=== PATIENT | female | born 1960 | race Caucasian/White ===

== ENCOUNTER → 2019-10-08 15:31 | Outpatient (CLI) | payer BC, SELFPAY ==
--- NOTE | 2019-10-08 15:32 | RAD_ITS ---
STUDY: X-RAY CHEST REASON FOR EXAM: Female, 59 years old. COUGH, FEVER, FATIGUE X ONE WEEK TECHNIQUE: PA and lateral views of the chest. COMPARISON: None. FINDINGS: Increased interstitial markings more prominent at the lung bases. This may represent either scarring or bilateral interstitial infiltrate. Follow-up is recommended. There is no demonstrated pleural abnormality. Normal size heart. Normal mediastinum and evens. Normal visualized pulmonary arteries. Normal visualized aortic arch and descending thoracic aorta. There are diffuse degenerative changes of the visualized thoracic spine. Normal visualized ribs, clavicles, and shoulders. There is no demonstrated abnormality of the visualized soft tissue structures of the upper abdomen. RAD/Chest PA and Lateral IMPRESSION: Increased interstitial markings in both lungs worse at the lung bases. This may represent either scarring or interstitial infiltrate. Follow-up is recommended. Electronically Signed: Jerardo Appiah, at 15:46 EDT , Service support ,
== END ==
PROVIDERS: Referring Provider Physician Assistant; Visit Provider Physician Assistant
DX: R05 Cough (principal)
CPT/HCPCS: 71046

== ENCOUNTER 2022-02-01 07:51 | Day surgery (SDC) | payer OTHER, SELFPAY ==
[2022-02-01 08:34] VITALS: BP 128/69; PULSE 69; RESP 16; TEMP 36.6; O2SAT 96; BMI 30.1
[2022-02-01] MEDS: Lactated Ringers 1,000 ML 15 ML IV (08:39)
[2022-02-01] MEDS: Lidocaine 1% (5 ml sdv) 5 ML Vial (08:58)
[2022-02-01] MEDS: 0.9% Normal Saline (Pres. free 10 ML Vial (08:59)
[2022-02-01] MEDS: Bupivacaine 0.25% 30 ML Vial (08:59)
[2022-02-01] MEDS: MethylPREDNISolone Acetate 80 MG/ML Vial (08:59)
[2022-02-01 09:10] VITALS: BP 128/69; BP 99/58; PULSE 75; RESP 16; TEMP 36.2; O2SAT 98
[2022-02-01 09:15] VITALS: BP 128/69; BP 96/62; PULSE 71; RESP 16; O2SAT 97
[2022-02-01 09:20] VITALS: BP 112/70; BP 128/69; PULSE 69; RESP 16; O2SAT 98
[2022-02-01 09:25] VITALS: BP 100/62; BP 128/69; PULSE 65; RESP 16; TEMP 36.2; O2SAT 98
--- NOTE | 2022-02-01 09:30 | RAD_ITS ---
PROCEDURE: Caudal block. DATE OF EXAMINATION: 02/01/2022. INDICATION: Female, 61 years old. Chronic low back pain. FLUOROSCOPY TIME (if supplied): (6.9 seconds) minutes/seconds. 3 images were obtained. RAD/Fluor Guidance for Spine Inj IMPRESSION: Intraoperative fluoroscopic services provided for caudal block. Electronically Signed: Jerardo Appiah MD at 12:17 EDT ,
[2022-02-01 09:47] VITALS: BP 128/69
--- NOTE | 2022-02-01 10:45 | OP.PCM_ITS ---
Report of Operation Date of Procedure: 02/01/22 Pre-Operative Diagnosis: Lumbosacral radiculopathy, lumbosacral degenerative di sc disease, lumbosacral spinal stenosis Post-Operative Diagnosis: Lumbosacral radiculopathy, lumbosacral degenerative disc disease, lumbosacral spinal stenosis Surgery/Procedure Performed:: Caudal epidural steroid injection under fluoroscopic guidance Type of Anesthesia: MAC Estimated Blood Loss (mL): Minimal Description of Procedure: DESCRIPTION OF PROCEDURE: History and physical of today was reviewed. Risks and benefits of the procedure were explained. The patient understood and agreed to proceed. Informed consent was obtained. IV inserted per routine protocol. The patient was taken to the operating room and placed in the prone position with a pillow positioned underneath the abdomen. The lower back and tailbone area was prepped and draped in a sterile fashion using iodine x3. Under fluoroscopy guidance on a lateral view, the caudal space was identified. The skin and subcutaneous tissue was anesthetized with approximately 3 mL of 1% lidocaine using a 25-gauge regular needle. Under direct visualization with fluoroscopy, using a 22-gauge 3-1/2-inch spinal needle, the needle was advanced via the skin through the sacral hiatus. The tip of the needle was passed through the sacrococcygeal ligament and advanced to approximately S4 area. After negative aspiration of blood or CSF, a total of 3 mL of contrast was injected to confirm correct placement of the needle as well as cephalad spread. The spread was followed to approximately L5 area. After confirmation on AP as well as lateral view and repeated negative aspiration, a total of 15 mL of preservative-free 0.125% Marcaine with 80 mg of Depo-Medrol was injected easily. The needle was then removed intact. The patient experienced no sign or symptoms of intrathecal or intravascular injection. The patient experienced no paresthesia. The procedure was completed without any apparent difficulty or any complications. The patient appeared to tolerate it well. ASSESSMENT AND PLAN: This is a 61-year-old female with lumbosacral radiculopathy, lumbosacral degenerative disc disease, lumbosacral spinal stenosis status post caudal epidural steroid injection, patient will continue her current medications, patient will follow in approximately 2 weeks for reevaluation. Complications None
--- NOTE | 2022-02-04 16:09 | HP.PCM_ITS ---
History and Physical Date of Admission: 02/01/22 Chief Complaint: Low back pain with radicular pain down her left leg, and into her right hip. History of Present Illness: This is a 61 Y/O female who was seen and evaluated at our office today as a new consult. Pt was referred to this office by Dr Coronado. Pt's chief complaint is low back pain with radicular pain down her left leg, and into her right hip. Pt states she has had this pain for 3 years does not remember an initial interview. Pt states the pain is an aching, cramping pain worse with walking better with sitting. Pt has had injections with relief. Pt states with activity she may have pain and tingling going down her left leg. Pt states at times she can get incontinence. Pt is here to see what can be done to help with her pain. Pain: back , leg, hip Quality: intermittent Region: back, bilateral hips (left is worse) , left leg Severity: aching, cramping, pins and needles/ numbness Timin Aggravated by: weight bearing Relieved by: sitting, lying down Pain score (out of 10): 0 /10 Other info: Reports pain in lower back, bilateral hips (left is worse) and left leg. states pain s intermittent . states pain in left leg goes farther down her leg the more active she is. Has had x-rays, mri, done physical therapy, and gone to a chiropractor. patient has had a injection in the past. would like to discuss injections. Review of Systems: Patient denies any recent fever, chills, headache, change in weight without trying, vision or hearing problems. No cp, sob, daley, pnd, orthopnea, or peripheral edema.They note no lumps or swollen glands, no new rashes, changing moles, or change in bowel or bladder function. No melena or BRBPR. Mood has been fine. Past Medical History: h/o Arthritis s/p Laparoscopic Cholecystectomy s/p Lithotripsy Family History: ======== Structured Family History ======== Father: Diabetes mellitus, Arthritis Social History: [Tobacco: Light tobacco smoker (0 ppd x 0 yrs = 0 pk yrs) Start Date: 12/31/2021 Pipe Smoker: No Cigar Smoker: No Chewing Tobacco User: No Electronic Cigarette User: No] Living situation: Occupation: retired Tobacco: light tobacco smoker EtOH: rarely Rec. drugs: denies Allergies: No Known Allergies Medications: No Active Meds Physical Examination: Wt: 182.6 lb Ht/Ln: 66.5 in BMI: 29.0 BP: 127/82 Pulse: 75 RR: 16 Temp: 96.8F Pain: 7 Well nourished and well developed in no acute distress. Alert and oriented to person, place and time. Affect is normal and appropriate. Mucosa pink and moist. Respirations even and unlabored. Neck is supple without significant lymphadenopathy or thyromegaly. Abdomen soft & non-tender. No HSM or masses appreciated. Extremities show no cyanosis, clubbing, or edema. Musculoskeletal exam: pt is ambulating to and from the examination room with an antalgic gait without any assistance of any devices, pt was able to ambulate on her heels and tip toes without difficulty, ROM of the lumbar spine is limited to 45 degrees flexion and 10 degrees extension, lateral rotation with pain. On inspection of the lower back there is no surgical scar, alignment of the spine appears normal. On superficial and deep palpation there is tenderness at the bilaterally paraspinal muscle without muscle spasms, there is no step off on the spinous process. There is tenderness and positive facet loading bilaterally, negative SI joint tenderness , SLR test is positive at 35 degrees on the right and positive 35 degrees on the left, YONIS test is positive on the right and positive on the left, motor function is 5/5 on the right lower extremity muscles and 5/5 on the left lower extremity muscles, sensory exam intact to light touch on the right and the left, reflexes are symmetrical bilateral and 2+ on the right knee jerk and Achilles and 2+ on the left knee jerk and Achilles, pulses and capillary refill are intact. Goals: Health Concerns: Assessment & Plan: # Lumbosacral spondylosis (M47.817): # Degeneration of lumbosacral intervertebral disc (M51.37): # Lumbosacral stenosis (M48.07): # Lumbosacral radiculopathy (M54.17): # Other intermediate designer (current) drug therapy (Z79.899): Continue current medication regime. OARRS was reviewed today. UDS was performed today and will be reviewed on the next encounter to monitor pt medications compliance. SOAPP score is 6 MRI of the lumbar spine was reviewed with the pt today and they appear to understand. There are no signs of diversion or addiction with the pt, there is also no signs of abuse or misuse, continues to do well with their medications without any side effects, we will continue monitoring the pt closely. Pt has tried multiple modalities in the past with little or no success, will schedule the pt for a therapeutic/diagnostic caudal epidural steroid injection under fluoroscopy We have discussed the risks, benefits as well as alternatives of the procedure and the patient appears to understand and would like to proceed with the above plan. Reviewed with the pt today our opioid agreement and they appear to understand. PEG was reviewed today. Life style modifications were also discussed today and the pt appears to understand. Smoking cessation was discussed today and pt was encouraged. Risks and benefits of the above meds were discussed with the pt and they appear to understand. The common side effects of the medications were discussed and all of their questions and concerns were answered and they appear to understand Discussed natural and expected course of this diagnosis and need to alert me if symptoms do not follow expected course, or if any worse. Pt is to continue with her PT and HEP. The above plan was discussed today with the pt in details and they appear to understand and agrees to continue with the plan. PROVIDED: Patient Education (01/07/2022) Assessment & Plan Assessment/Plan PLAN: Plan Chief Complaint: Low back pain with radicular pain down her left leg, and into her right hip. History of Present Illness: This is a 61 Y/O female who was seen and evaluated at our office today as a new consult. Pt was referred to this office by Dr Coronado. Pt's chief complaint is low back pain with radicular pain down her left leg, and into her right hip. Pt states she has had this pain for 3 years does not remember an initial interview. Pt states the pain is an aching, cramping pain worse with walking better with sitting. Pt has had injections with relief. Pt states with activity she may have pain and tingling going down her left leg. Pt states at times she can get incontinence. Pt is here to see what can be done to help with her pain. Pain: back , leg, hip Quality: intermittent Region: back, bilateral hips (left is worse) , left leg Severity: aching, cramping, pins and needles/ numbness Timin Aggravated by: weight bearing Relieved by: sitting, lying down Pain score (out of 10): 0 /10 Other info: Reports pain in lower back, bilateral hips (left is worse) and left leg. states pain s intermittent . states pain in left leg goes farther down her leg the more active she is. Has had x-rays, mri, done physical therapy, and gone to a chiropractor. patient has had a injection in the past. would like to discuss injections. Review of Systems: Patient denies any recent fever, chills, headache, change in weight without trying, vision or hearing problems. No cp, sob, daley, pnd, orthopnea, or peripheral edema.They note no lumps or swollen glands, no new rashes, changing moles, or change in bowel or bladder function. No melena or BRBPR. Mood has been fine. Past Medical History: h/o Arthritis s/p Laparoscopic Cholecystectomy s/p Lithotripsy Family History: ======== Structured Family History ======== Father: Diabetes mellitus, Arthritis Social History: [Tobacco: Light tobacco smoker (0 ppd x 0 yrs = 0 pk yrs) Start Date: 12/31/2021 Pipe Smoker: No Cigar Smoker: No Chewing Tobacco User: No Electronic Cigarette User: No] Living situation: Occupation: retired Tobacco: light tobacco smoker EtOH: rarely Rec. drugs: denies Allergies: No Known Allergies Medications: No Active Meds Physical Examination: Wt: 182.6 lb Ht/Ln: 66.5 in BMI: 29.0 BP: 127/82 Pulse: 75 RR: 16 Temp: 96.8F Pain: 7 Well nourished and well developed in no acute distress. Alert and oriented to person, place and time. Affect is normal and appropriate. Mucosa pink and moist. Respirations even and unlabored. Neck is supple without significant lymphadenopathy or thyromegaly. Abdomen soft & non-tender. No HSM or masses appreciated. Extremities show no cyanosis, clubbing, or edema. Musculoskeletal exam: pt is ambulating to and from the examination room with an antalgic gait without any assistance of any devices, pt was able to ambulate on her heels and tip toes without difficulty, ROM of the lumbar spine is limited to 45 degrees flexion and 10 degrees extension, lateral rotation with pain. On inspection of the lower back there is no surgical scar, alignment of the spine appears normal. On superficial and deep palpation there is tenderness at the bilaterally paraspinal muscle without muscle spasms, there is no step off on the spinous process. There is tenderness and positive facet loading bilaterally, negative SI joint tenderness , SLR test is positive at 35 degrees on the right and positive 35 degrees on the left, YONIS test is positive on the right and positive on the left, motor function is 5/5 on the right lower extremity muscles and 5/5 on the left lower extremity muscles, sensory exam intact to light touch on the right and the left, reflexes are symmetrical bilateral and 2+ on the right knee jerk and Achilles and 2+ on the left knee jerk and Achilles, pulses and capillary refill are intact. Goals: Health Concerns: Assessment & Plan: # Lumbosacral spondylosis (M47.817): # Degeneration of lumbosacral intervertebral disc (M51.37): # Lumbosacral stenosis (M48.07): # Lumbosacral radiculopathy (M54.17): # Other intermediate designer (current) drug therapy (Z79.899): Continue current medication regime. OARRS was reviewed today. UDS was performed today and will be reviewed on the next encounter to monitor pt medications compliance. SOAPP score is 6 MRI of the lumbar spine was reviewed with the pt today and they appear to understand. There are no signs of diversion or addiction with the pt, there is also no signs of abuse or misuse, continues to do well with their medications without any side effects, we will continue monitoring the pt closely. Pt has tried multiple modalities in the past with little or no success, will schedule the pt for a therapeutic/diagnostic caudal epidural steroid injection under fluoroscopy We have discussed the risks, benefits as well as alternatives of the procedure and the patient appears to understand and would like to proceed with the above p cornelio. Reviewed with the pt today our opioid agreement and they appear to understand. PEG was reviewed today. Life style modifications were also discussed today and the pt appears to understand. Smoking cessation was discussed today and pt was encouraged. Risks and benefits of the above meds were discussed with the pt and they appear to understand. The common side effects of the medications were discussed and all of their questions and concerns were answered and they appear to understand Discussed natural and expected course of this diagnosis and need to alert me if symptoms do not follow expected course, or if any worse. Pt is to continue with her PT and HEP. The above plan was discussed today with the pt in details and they appear to understand and agrees to continue with the plan. PROVIDED: Patient Education (01/07/2022)
== END 2022-02-01 09:48 | disposition home or self-care (01) ==
LOC: SDC 07:55 → AC 08:02
PROVIDERS: PCP Family Medicine; Referring Provider Anesthesiology Pain Medicine; Visit Provider Anesthesiology Pain Medicine
PROC: 3E0S3BZ Introduction of Anesthetic Agent into Epidural Space, Percutaneous Approach (ICD-10-PCS; CPT 62282; principal; 2022-02-01 09:25)
DX: M47.27 Other spondylosis with radiculopathy, lumbosacral region (principal); M48.07 Spinal stenosis, lumbosacral region; F17.210 Nicotine dependence, cigarettes, uncomplicated; M51.17 Intervertebral disc disorders with radiculopathy, lumbosacral region; G25.81 Restless legs syndrome; Z78.0 Asymptomatic menopausal state
CPT/HCPCS: 62323; 01992; 64483; 77003; J7120; J3490

== ENCOUNTER → 2023-06-14 | Outpatient (CLI) | payer MEDICARE, SELFPAY ==
--- NOTE | 2023-06-14 08:00 | CT_ITS ---
EXAM: CT ABDOMEN AND PELVIS WITHOUT INTRAVENOUS CONTRAST CLINICAL INDICATION: R FLANK PAIN/HX STONES TECHNIQUE: Helically acquired images were obtained of the abdomen and pelvis without intravenous contrast. This CT exam was performed using one or more of the following dose reduction techniques: automated exposure control, adjustment of the mA and/or kV according to patient size, and/or use of iterative reconstruction technique. COMPARISON: No relevant prior studies available. FINDINGS: LOWER THORAX: 3.6 mm left lower lobe pulmonary nodule as well as a 3 mm right lower lobe pulmonary nodule. ABDOMEN: LIVER: 13 mm cyst noted within hepatic segment 7. No specific follow-up indicated. GALLBLADDER AND BILE DUCTS: Cholecystectomy clips are in place. PANCREAS: Normal. No focal cystic mass. SPLEEN: Normal. Normal size without focal cystic or solid mass. ADRENALS: Normal. No nodules. KIDNEYS AND URETERS: 12 x 8 mm stone noted at the left UP junction associated with marked left hydronephrosis. 10 x 7 mm nonobstructive stone noted within the lower pole infundibulum of the right kidney. STOMACH AND BOWEL: Diverticulosis of the colon noted without evidence of acute diverticulitis. PELVIS: APPENDIX: Appendix is visualized and normal in appearance. BLADDER: Normal. REPRODUCTIVE: Unremarkable as visualized. No mass. ABDOMEN and PELVIS: INTRAPERITONEAL SPACE: Normal. No ascites or other fluid collection. No free air. BONES/JOINTS: No suspicious lytic or blastic abnormality. SOFT TISSUES: Small fat-containing umbilical hernia is present. Bilateral fat-containing inguinal hernias. VASCULATURE: Normal. Abdominal aorta is non-dilated. LYMPH NODES: Normal. No enlarged lymph nodes. CT/Abdomen/Pelvis without Cont IMPRESSION: 1. Obstructive 12 x 8 mm stone at the left UP junction. 2. Right nephrolithiasis. 3. Diverticulosis coli. Electronically Signed: Sarwat Marvin MD at 8:53 EST ,
== END | disposition home or self-care (01) ==
PROVIDERS: PCP Family Medicine; Referring Provider Urology; Visit Provider Urology
DX: R10.9 Unspecified abdominal pain (principal); Z87.442 Personal history of urinary calculi
CPT/HCPCS: 74176

== ENCOUNTER 2023-06-16 08:45 | Day surgery (SDC) | payer MEDICARE, SELFPAY ==
[2023-06-16] MEDS: Lactated Ringers 1,000 ML 15 ML IV (09:28)
[2023-06-16 09:29] VITALS: BP 125/66; PULSE 74; RESP 18; TEMP 36.3; O2SAT 100; BMI 29.9
[2023-06-16 09:33] LABS: Hematocrit 41.5 % (37-47); Hemoglobin 13.3 g/dL (12.0-15.0); Mean Corpuscular Hgb 29.6 pg (27.0-32.0); Mean Corpuscular Volume 92.4 fL (81-99); Mean Platelet Vol. 9.6 fl (6.2-12.0); Platelet Count 270 K/mm3 (150-450); RBC Distribution Width CV 12.5 % (11.6-14.6); RBC Distribution Width SD 42.8 fl (35.1-43.9); Red Blood Count 4.49 M/mm3 (4.2-5.4); White Blood Count 6.5 K/mm3 (4.4-11.0)
[2023-06-16] MEDS: Ciprofloxacin 400 MG/200 ML BAG 200 MG IV (09:39)
[2023-06-16 09:42] VITALS: BMI 29.9
[2023-06-16 09:45] LABS: Anion Gap 2 (5-15); BUN 18 mg/dL (7-18); BUN/Creat Ratio 17.3 RATIO (10-20); Calcium,Total 8.8 mg/dL (8.5-10.1); Chloride 111 mmol/L (98-107); Creatinine, Serum 1.04 mg/dL (0.55-1.02); EST Glomerular Filtration Rate 57 mL/min (>60); Est Glom Filt Rate - Afr Amer 68 mL/min (>60); Estimated Creatinine Clearance 48.53 ml/min; Glucose 115 mg/dL (74-106); Sodium Level 141 mmol/L (136-145)
[2023-06-16 10:35] VITALS: BP 110/60; BP 110/67; BP 125/66; PULSE 71; PULSE 76; RESP 12; RESP 18; TEMP 36.6; O2SAT 95; O2SAT 97
[2023-06-16 10:40] VITALS: BP 125/66; BP 128/72; PULSE 75; RESP 14; O2SAT 96
[2023-06-16 10:46] VITALS: BP 125/66; BP 128/72; PULSE 71; RESP 18; TEMP 36.8; O2SAT 96
--- NOTE | 2023-06-16 10:54 | DCINST_ITS ---
Discharge Instructions Diet Discharge Diet: No restrictions Activity Discharge Activity: Return to Normal Activity Dressing / Incision Call your doctor if you observe: Fever of 101 or Higher and Inability to urinate Follow Up Care Please Follow Up With: Nettie Belle MD When: the office will call to make arrangements for follow up Test Results: Test results from this visit will be discussed in further detail at your follow- up appointment, if applicable. Discharge Plan Admission Attending Provider: Nettie Belle Primary Care Provider: Koby Young Discharge Orders/Prescriptions Prescriptions: New oxycodone-acetaminophen [Percocet] 5-325 mg tablet 1 tab PO Q8H PRN (Reason: pain) 3 Days Qty: 10 0RF phenazopyridine [Pyridium] 200 mg tablet 200 mg PO TID PRN PRN (Reason: Bladder Spasms) 7 Days Qty: 30 0RF Continued ciprofloxacin HCl 500 mg tablet 500 mg PO Q12H Referrals / Follow Up: Koby Young MD [Primary Care Provider] - Disposition Disposition (needs filled in before D/C Order can be placed): Home, Self Care
--- NOTE | 2023-06-16 10:57 | OP.PCM_ITS ---
Report of Operation Date of Procedure: 06/16/23 Pre-Operative Diagnosis: Bilateral renal stones, left hydronephrosis, bilateral flank pain Post-Operative Diagnosis: Same Surgery/Procedure Performed:: Cystoscopy, insertion of bilateral ureteral stents Surgeon: Nettie Belle Type of Anesthesia: MAC Description of Procedure: The patient is a 63-year-old female with bilateral back pain and urinary tract infections who was evaluated and found to have bilateral large renal stones with hydronephrosis on the left. She now presents for cystoscopy with bilateral stent insertion and will return later for treatment of her stones. Informed consent was obtained. The patient was taken to the operating room placed on the operating room table. Anesthesia monitored the head, neck, airway, IV access and vital signs throughout the case. Once anesthesia was administered, the patient was placed in dorsolithotomy position was prepped and draped in usual sterile fashion. At this time the cystoscope was inserted through the urethra under direct visualization into the urinary bladder. Visualization of the mucosa revealed no evidence of mass, erythema, ulceration or foreign body. The right ureteral orifice was intubated with a 0.035 Glidewire which was seen curling in the renal pelvis on fluoroscopy. A 6 Micronesian 26 cm JJ stent was placed over the Glidewire with good positioning in the renal pelvis and the urinary bladder. This process was repeated on the patient's left side with some difficulty at the ureteropelvic junction where the stone was sitting. The stent did pass by and curled in the renal pelvis as well as the urinary bladder. At this time the bladder was emptied and the cystoscope was removed. The patient was awakened and taken to the recovery room in good condition. Grafts/Implants Used: 6 Micronesian x26 cm JJ stent x2 Complications None Admit VTE Documentation VTE Present on Admission: Yes VTE Mechan Device Prophylaxis: SCD's VTE Pharm Prophylaxis ordered?: No Reason prophylaxis not ordered:: Treatment Not Indicated
[2023-06-16 11:09] VITALS: BP 125/66
== END 2023-06-16 11:18 | disposition home or self-care (01) ==
LOC: SDC 08:46 → AC 08:48
PROVIDERS: PCP Family Medicine; Referring Provider Urology; Visit Provider Urology
PROC: (CPT 52332; principal; 2023-06-16 10:00)
DX: N13.6 Pyonephrosis (principal); F17.200 Nicotine dependence, unspecified, uncomplicated; Z90.49 Acquired absence of other specified parts of digestive tract; Z87.442 Personal history of urinary calculi; N39.0 Urinary tract infection, site not specified; R10.9 Unspecified abdominal pain
CPT/HCPCS: 52332; 00910; 76000; 80048; 85027; J7120; C2617; J0744; J2405

== ENCOUNTER 2023-07-07 05:49 | Day surgery (SDC) | payer MEDICARE, SELFPAY ==
[2023-07-07 06:21] VITALS: BP 123/78; PULSE 87; RESP 16; TEMP 36.4; O2SAT 100; BMI 29.3
[2023-07-07] MEDS: Lactated Ringers 1,000 ML 15 ML IV (06:24)
[2023-07-07] MEDS: Cefazolin 2 GM in 0.9% Normal Saline (100mL Bag) 100 ML IV (07:48)
--- NOTE | 2023-07-07 08:04 | DCINST_ITS ---
Discharge Instructions Diet Discharge Diet: No restrictions Activity Discharge Activity: Return to Normal Activity Dressing / Incision Call your doctor if you observe: Fever of 101 or Higher, Inability to urinate and Inability to have a bowel movement Follow Up Care Please Follow Up With: Nettie Belle MD When: the office will make arrangements for the next procedure. Test Results: Test results from this visit will be discussed in further detail at your follow- up appointment, if applicable. Discharge Plan Admission Attending Provider: Nettie Belle Primary Care Provider: Koby Young Discharge Orders/Prescriptions Prescriptions: New oxycodone-acetaminophen [Percocet] 5-325 mg tablet 1 tab PO Q8H PRN (Reason: pain) 3 Days Qty: 12 0RF Continued cephalexin 250 mg capsule 250 mg PO QHS Patient Comments: TAKE 1 CAPSULE BY MOUTH DAILY AT BEDTIME Referrals / Follow Up: Koby Young MD [Primary Care Provider] - Disposition Disposition (needs filled in before D/C Order can be placed): Home, Self Care
--- NOTE | 2023-07-07 08:13 | PCM.OPRPT ---
Report of Operation Date of Procedure: 07/07/23 Pre-Operative Diagnosis: Left renal stone Post-Operative Diagnosis: Same Surgery/Procedure Performed:: Left renal extracorporal shockwave lithotripsy Surgeon: Nettie Belle Type of Anesthesia: General Specimen's removed: none Description of Procedure: The patient is a 63-year-old female with bilateral renal stones who presents for shockwave lithotripsy for the left side today. Informed consent has been obtained. She already has an indwelling left ureteral stent. The patient was taken to the operating room and placed on the operating room table. Anesthesia monitored the head, neck, airway, IV access and vital signs throughout the case. Once anesthesia was appropriate ministered, the patient was aligned with the lithotripter. Her stones were easily visible and 3000 shocks were applied. The stones appeared to be well broken at the conclusion of the case. She was awakened and taken the recovery room in good condition. There were no complications during this procedure. Complications none Admit VTE Documentation VTE Present on Admission: Yes VTE Mechan Device Prophylaxis: SCD's VTE Pharm Prophylaxis ordered?: No Reason prophylaxis not ordered:: Treatment Not Indicated
[2023-07-07 08:42] VITALS: BP 123/78; BP 127/67; PULSE 71; RESP 16; TEMP 36.5; O2SAT 95
[2023-07-07 08:45] VITALS: BP 113/71; BP 123/78; PULSE 71; RESP 16; O2SAT 96
[2023-07-07 08:50] VITALS: BP 115/65; BP 123/78; PULSE 68; RESP 16; O2SAT 96
[2023-07-07 08:55] VITALS: BP 120/64; BP 123/78; PULSE 70; RESP 16; TEMP 36.6; O2SAT 72
[2023-07-07 09:14] VITALS: BP 123/78
== END 2023-07-07 09:19 | disposition home or self-care (01) ==
LOC: SDC 05:49 → AC 05:50
PROVIDERS: PCP Family Medicine; Referring Provider Urology; Visit Provider Urology
PROC: (CPT 50590; principal; 2023-07-07 07:20)
DX: N20.2 Calculus of kidney with calculus of ureter (principal); Z90.49 Acquired absence of other specified parts of digestive tract; Z87.442 Personal history of urinary calculi; N39.0 Urinary tract infection, site not specified; F17.200 Nicotine dependence, unspecified, uncomplicated; R10.9 Unspecified abdominal pain
CPT/HCPCS: 50590; 00873; J7120; J2405

== ENCOUNTER → 2023-07-26 | Outpatient (CLI) | payer MEDICARE, SELFPAY ==
--- NOTE | 2023-07-26 12:35 | RAD_ITS ---
INDICATION: KUB- LEFT RENAL STONE EXAMINATION/TECHNIQUE: X-RAY - XR Abdomen 1 View COMPARISON: No relevant prior comparison study available FINDINGS: BOWEL GAS PATTERN: Non-obstructive. Fecal retention. Mildly distended stomach. FREE AIR: Not assessed on a single supine view. ORGANOMEGALY: Not seen. CALCIFICATIONS: No abnormal calcifications observed. LOWER CHEST: Not included on this exam. BONES AND SOFT TISSUES: Bilateral double-J stent catheters with the proximal TIPS the region of the renal calyces and the distal tips in the region of the bladder. No demonstrated acute osseous changes. RAD/Abdomen Single View IMPRESSION: 1. Non-obstructive bowel gas pattern. 2. Bilateral double-J stent catheters. Electronically Signed: Faustino Oneal MD at 13:22 EST ,
--- OUTSIDE RECORDS SUMMARY | 2023-07-26 12:56 | XMS RPT_ITS | CCD ---
Author Name Unknown Address [address] [place] [address] Organization [facility] Care Team Providers Care Front Office Director Name Role Phone DR JONATHAN AVILES MD Primary Care Physician Jonathan Aviles MD Primary Care Provider Jonathan Aviles MD Primary Care Provider Jonathan Aviles MD Primary Care Provider JONATHAN AVILES Primary Care Unavailable JONATHAN AVILES Referring Unavailable JONATHAN AVILES Attending Unavailable JONATHAN AVILES Primary Care Unavailable JONATHAN AVILES Referring Unavailable JONATHAN AVILES Primary Care Unavailable Medications Current Medications Medication Drug Class(es) Dates Sig (Normalized) Sig (Original) amoxicillin 875 mg / clavulanate 125 mg oral tablet (1 source) Penicillin-class Antibacterial Start: 06-02-2022 End: 06-12-2022 take 1 tablet by mouth twice daily amoxicillin-clav ulanic acid (AUGMENTIN) 875-125 mg per tablet Take 1 tablet by mouth twice daily for 10 days. 20 tablet 0 06/02/2022 06/12/2022 Active Problems Active Problems Problem Classification Problem Date Documented Da te Episodic/Chronic Coagulation and hemorrhagic disorders (7 sources) Factor XII deficiency disease; Translations: [Hereditary deficiency of other clotting factors] Onset: 07-02-2013 07-02-2013 Chronic Disorders of lipid metabolism (1 source) Mixed hyperlipidemia; Translations: [Mixed hyperlipidemia] Chronic Other screening for suspected conditions (not mental disorders or infectious disease) (5 sources) Patient encounter status; Translations: [Encounter for screening for malignant neoplasm of colon] Onset: 06-03-2023 Episodic Other upper respiratory infections (1 source) Bacterial sinusitis; Translations: [Chronic sinusitis, unspecified] Chronic Spondylosis; intervertebral disc disorders; other back problems (1 source) Low back pain; Translations: [Low back pain, unspecified back pain laterality, unspecified chronicity, unspecified whether sciatica present] 05-23-2023 Episodic Past or Other Problems Problem Classification Problem Date Documented Da te Episodic/Chronic Calculus of urinary tract (14 sources) Kidney stone; Translations: [Calculus of kidney] Onset: 07-02-2013 07-02-2013 Episodic Genitourinary symptoms and ill-defined conditions (7 sources) Blood in urine; Translations: [Hematuria, unspecified] Onset: 05-03-2013 05-03-2013 Episodic Other non-traumatic joint disorders (7 sources) Hip pain; Translations: [Pain in left hip] Onset: 12-01-2020 12-01-2020 Episodic Screening and history of mental health and substance abuse codes (8 sources) Tobacco use and exposure - finding; Translations: [Personal history of nicotine dependence] Onset: 05-03-2013 05-03-2013 Episodic Urinary tract infections (7 sources) Lower urinary tract infectious disease; Translations: [Urinary tract infection, site not specified] Onset: 05-03-2013 05-03-2013 Episodic Results Test Name Value Interpretation Reference Range Facil ity Vital Signs Date Time Vital Sign Value Performing Clinician Facility 01-10-2023 11:57-0400 Body height 165.1 cm Jonathan Aviles MD Work Phone: [facility] 01-10-2023 11:57-0400 Body weight 82.64 kg Jonathan Aviles MD Work Phone: [facility] 01-10-2023 11:57-0400 Diastolic blood pressure 68 mm[Hg] Jonathan Aviles MD Work Phone: [facility] 01-10-2023 11:57-0400 Heart rate 78 /min Jonathan Aviles MD Work Phone: [facility] 01-10-2023 11:57-0400 Respiratory rate 16 /min Jonathan Aviles MD Work Phone: [facility] 01-10-2023 11:57-0400 Systolic blood pressure 120 mm[Hg] Jonathan Aviles MD Work Phone: [facility] 06-02-2022 17:50-0500 Body temperature 98.91 [degF] Jonathan Aviles MD Work Phone: [facility] 06-02-2022 17:50-0500 Body weight 82.56 kg Jonathan Aviles MD Work Phone: [facility] 06-02-2022 17:50-0500 Diastolic blood pressure 80 mm[Hg] Jonathan Aviles MD Work Phone: [facility] 06-02-2022 17:50-0500 Heart rate 88 /min Jonathan Aviles MD Work Phone: [facility] 06-02-2022 17:50-0500 Respiratory rate 16 /min Jonathan Aviles MD Work Phone: [facility] 06-02-2022 17:50-0500 Systolic blood pressure 140 mm[Hg] Jonathan Aviles MD Work Phone: [facility] 11-26-2021 08:04-0400 Body height 167.6 cm Jonathan Aviles MD Work Phone: [facility] 11-26-2021 08:04-0400 Body weight 84.32 kg Jonathan Aviles MD Work Phone: [facility] 11-26-2021 08:04-0400 Diastolic blood pressure 70 mm[Hg] Jonathan Aviles MD Work Phone: [facility] 11-26-2021 08:04-0400 Heart rate 74 /min Jonathan Aviles MD Work Phone: [facility] 11-26-2021 08:04-0400 Respiratory rate 16 /min Jonathan Aviles MD Work Phone: [facility] 11-26-2021 08:04-0400 Systolic blood pressure 124 mm[Hg] Jonathan Aviles MD Work Phone: [facility] 11-25-2021 07:58-0400 diastolic 76 mm[Hg] NEERU WOODARD DO [facility] 11-25-2021 07:58-0400 Heart rate 72 /min NEERU WOODARD DO [facility] 11-25-2021 07:58-0400 systolic 122 mm[Hg] NEERU WOODARD DO [facility] 11-25-2021 07:46-0400 diastolic 83 mm[Hg] ENERU WOODARD DO [facility] 11-25-2021 07:46-0400 Heart rate 77 /min NEERU WOODARD DO [facility] 11-25-2021 07:46-0400 systolic 123 mm[Hg] NEERU WOODARD DO [facility] 11-25-2021 07:39-0400 diastolic 76 mm[Hg] NEERU WOODARD DO [facility] 11-25-2021 07:39-0400 Heart rate 78 /min NEERU WOODARD DO [facility] 11-25-2021 07:39-0400 systolic 113 mm[Hg] NEERU WOODARD DO [facility] 11-25-2021 07:31-0400 Body temperature 97.7 [degF] NEERU WOODARD DO [facility] 11-25-2021 06:50-0400 Body height 165.1 cm NEERU WOODARD DO [facility] 11-25-2021 06:50-0400 Body temperature 98.24 [degF] NEERU WOODARD DO [facility] 11-25-2021 06:50-0400 Body weight 86.4 kg NEERU WOODARD DO [facility] 11-25-2021 06:50-0400 Heart rate 87 /min NEERU WOODARD DO [facility] 11-25-2021 06:50-0400 Respiratory rate 12 /min NEERU WOODARD DO [facility] Encounters Encounter Date Encounter Type Care Provider Facility Start: 06-06-2023 Documentation procedure Mammog karen Coordinator [facility] Start: 06-06-2023 Letter encounter Mammography Coordinator [facility] Department Start: 06-03-2023 End: 06-03-2023 ambulatory JONATHAN AVILES Facility:[facility] Start: 06-03-2023 End: 06-03-2023 Subsequent hospital visit by physician Screen Mammo [facility] Mammogram Procedures Date Procedure Procedure Detail Performing Clinician Start: 07-22-2022 Lipid 1996 panel - S marita or Plasma Jonathan Aviles MD Work Phone: Start: 11-26-2021 Adult depression scr eening assessment Jonathan Aviles MD Work Phone: Start: 04-24-2012 Mammography Jonathan ragland MD Work Phone: Cholecystectomy NEERU WATT S DO Electrohydraulic lithotripsy NEERU WOODARD DO Plan of Treatment Date Care Activity Detail Author Start: 07-22-2027 Lipid 1996 panel - S marita or Plasma Lipid Screening [facility] Start: 07-22-2027 LIPID SCREEN LIPID SCREEN [facility] Start: 11-18-2025 LIPID SCREEN LIPID SCREEN [facility] Start: 07-22-2025 DIABETES SCREEN DIABETES SCREEN [facility] Start: 07-22-2025 Diabetes Screening Diabetes Screenin g [facility] Start: 06-03-2024 Mammography Mammogram Screening [facility] Start: 11-19-2023 DIABETES SCREEN DIABETES SCREEN [facility] Start: 06-04-2023 COLORECTAL CANCER SCREENING COLORECTAL CANCER SCREENING [facility] Start: 06-04-2023 FECAL OCCULT BLOOD FECAL OCCULT BLOO D [facility] Start: 06-02-2023 COLORECTAL CANCER SCREENING COLORECTAL CANCER SCREENING [facility] Immunizations Immunization Date Immunization Notes Care Provider Fa cility 10-02-2022 zoster vaccine recombinant Jonathan Aviles MD Work Phone: [facility] 07-27-2022 zoster vaccine recombinant Jonathan Aviles MD Work Phone: [facility] 12-27-2020 COVID-19 vaccine, fu ll dose (MODERNA) Jonathan Aviles MD Work Phone: [facility] 11-29-2020 COVID-19 vaccine, fu ll dose (MODERNA) Jonathan Aviles MD Work Phone: [facility] 03-04-2010 tetanus toxoid, redu jonathan diphtheria toxoid, and acellular pertussis vaccine, adsorbed Jonathan Aviles MD Work Phone: [facility] Payers Date Payer Category Payer Unknown [id number] 2020 Unknown RACQUEL AYON O DEVIN [id number] 2020-Present [phone] [address] [place] [address] [facility] [id number] 2020 Unknown [id number] 2020 Unknown [id number] Social History Date Type Detail Facility Start: 11-25-2021 Tobacco smoking status Light tobacco smoker (finding) [facility] Start: 1960 Sex Assigned At Female [facility] Start: 09-25-2012 Tobacco smoking status NHIS Smokes tobacco daily [facility] History of tobacco use Cigarette Smoker C [facility] Start: 11-26-2021 End: 01-10-2023 Alcohol intake Current drinker of alcohol (finding) [facility] Start: 11-20-2020 End: 01-05-2023 History SDOH Alcohol Frequency 1 [facility] Start: 06-18-2013 History SDOH Alcohol Comment 1 drink per year. [facility] Start: 11-20-2020 End: 01-05-2023 History SDOH Social Connections Phone 3 [facility] Start: 11-20-2020 End: 01-05-2023 History SDOH Social Connections Orthodox 2 [facility] Start: 11-20-2020 End: 01-05-2023 History SDOH Physical Activity DPW 5 [facility] Start: 11-20-2020 Education 17 [facility] Start: 11-16-2021 End: 06-02-2022 Exposure to SARS-CoV-2 (event) Not sure [facility] Start: 09-25-2012 End: 01-05-2023 Cigarettes smoked current (pack per day) - Reported 0.3 [facility] Start: 09-25-2012 Tobacco use and exposure Smokeless tobacco non-user [facility] Start: 01-05-2023 History SDOH Alcohol Std Drinks 0 [facility] Start: 01-05-2023 History SDOH Social Connections Meetings 98 [facility] Start: 01-05-2023 End: 01-10-2023 Social connection and isolation panel [facility] Do you belong to any clubs or organizations such as voodoo groups, unions, fraternal or athletic groups, or school groups? No [facility] How often do you att end meetings of the clubs or organizations you belong to? Patient refused [facility] Are you now , , , , never or living with a partner? [facility] How often to you hav e a drink containing alcohol? Never [facility] Do you feel stress - tense, restless, nervous, or anxious, or unable to sleep at night because your mind is troubled all the time - these days [OSQ] Not at all [facility] (I/We) worried wheth er (my/our) food would run out before (I/we) got money to buy more. Never true [facility] Start: 11-20-2020 Gender identity Identifies as female gender (finding) [facility] Start: 11-20-2020 Sexual orientation Heterosexual (finding) [facility] Medical Equipment Procedure Code Equipment Code Equipment Origin al Text Equipment Identifier Dates Stent Uret 7fr 2 4cm W/O Gw Inl - [id number] Start: 07-19-2013 Functional Status Date Assessment Result Facility 11-25-2021 Functional Status [facility] 11-25-2021 [facility] Mental Status Date Assessment Result Facility 11-25-2021 Mental Status [facility] Clinical Notes 05-03-2013 to 07-14-2023 Letter - Coordinator, [facility] - 06/06/2023 9:59 AM Damari Capone RT(Nichole) - 06/03/2023 12:30 PM ESTTelephone Encounter - Zayra Kline Ma - 05/23/2023 4:10 PM EST Note Date & Type Note Facility 07-14-2023 Note Patient Outreach (CLEMENTINE TNAV) DONNA LOUIS ([id number]) 1960 F Date Time Provider Department 07/14/23 LISA MULLIGAN NETNAV During your visit today, we recorded the following information about you: Lisa Mulligan PSS 07/14/2023 11:45 AM Signed POPULATION HEALTH NAVIGATION OUTREACH Action/FYI Pt due for: Return in about 1 year (around 01/11/2024). Colonoscopy Flu shot AD Spoke to pt; declined scheduling at this time. Patient Identified by Name and : YES, via phone Outreach Outcome/Action Spoke to patient / parent / legal guardian: Patient declined. Not interested in scheduling Dwellablehart message sent Advance Directives sent Did you use a PCP flex slot to schedule this appointment? N/A Reason for Outreach Care Gap or Scheduling/Wellness visits Payer: Payor: RACQUEL [employer] / Plan: RACQUEL [employer] HMO / Product Type: HMO / Care Gap Reviewed:: Annual Wellness visit Colorectal Cancer Screening Flu Vaccine Reminder: Reminder note to check Health Maintenance for items below Health Maintenance items due: Pneumococcal Vaccine: 65+(1 of 2 - PCV) Never done Hepatitis C Screening Never done HIV Screening Never done RSV Vaccine(1 - 1-dose 60+ series) Never done DTaP,Tdap,Td Vaccine(2 - Td or Tdap) due on 03/04/2020 Influenza Vaccine(1) Never done Covid-19 Vaccine(3 - 2022- season) due on 03/18/2023 Bone Density Screening Never done Advance Directive Discussion Never done Colorectal Cancer Screening due on 06/04/2023 Navigation Signature: EBER Garcia July 14, 2023 8:32 AM Allergies As of Date: 07/14/2023 (No Known Allergies) Date Reviewed: 01/10/2023 Reviewed by: Donna Christine Ma - Fully Assessed Reason for Visit: Population Health Navigation Outreach [3910] Cmt: Racquel care gaps Problem List As Of Date 07/14/2023 Noted Resolved Right flank pain [R10.9] 05/03/2013 07/02/2013 Hematuria [R31.9] 05/03/2013 UTI (lower urinary tract infection) [N39.0] 05/03/2013 Smoking history [Z87.891] 05/03/2013 Factor XII deficiency [D68.2] 07/02/2013 Kidney stone [N20.0] 07/02/2013 Calculus of kidney [N20.0] 07/10/2013 Left hip pain [M25.552] 12/01/2020 Encounter Status:Closed by LISA MULLIGAN on 07/14/23 [facility] 07-14-2023 Note HNO ID: [id number] Author: Lisa Mulligan PSS Service: ? Author Type: ? Type: Progress Notes Filed: 07/14/2023 11:45 AM Note Text: POPULATION HEALTH NAVIGATION OUTREACH Action/FYI Pt due for: Return in about 1 year (around 01/11/2024). Colonoscopy Flu shot AD Spoke to pt; declined scheduling at this time. Patient Identified by Name and : YES, via phone Outreach Outcome/Action Spoke to patient / parent / legal guardian: Patient declined. Not interested in scheduling Dwellablehart message sent Advance Directives sent Did you use a PCP flex slot to schedule this appointment? N/A Reason for Outreach Care Gap or Scheduling/Wellness visits Payer: Payor: Ep[employer] / Plan: [employer] HMO / Product Type: HMO / Care Gap Reviewed:: Annual Wellness visit Colorectal Cancer Screening Flu Vaccine Reminder: Reminder note to check Health Maintenance for items below Health Maintenance items due: Pneumococcal Vaccine: 65+(1 of 2 - PCV) Never done Hepatitis C Screening Never done HIV Screening Never done RSV Vaccine(1 - 1-dose 60+ series) Never done DTaP,Tdap,Td Vaccine(2 - Td or Tdap) due on 03/04/2020 Influenza Vaccine(1) Never done Covid-19 Vaccine(3 - 2022- season) due on 03/18/2023 Bone Density Screening Never done Advance Directive Discussion Never done Colorectal Cancer Screening due on 06/04/2023 Navigation Signature: EBER Garcia July 14, 2023 8:32 AM [facility] 06-06-2023 Miscellaneous Notes June 06, 2023 PID: [id number] Donna Louis [address] [place] [address] Dear Ms. Louis, We are pleased to inform you that the results of your recent breast imaging exam on 06/03/2023 are normal. Early detection of cancer is very important. We also understand recommendations regarding breast cancer screening are controversial. Please discuss with your primary care provider which strategy is best for you and whether a mammogram is right for you. Your imaging studies and report will be kept on file at [facility] as part of your permanent medical record and are available for your continuing care. Thank you for allowing us to help in meeting your health care needs. Sincerely, Dr. Werner Interpreting Radiologist [facility] (Normal over 40) documented in this encounter [facility] 06-03-2023 Note HNO ID: [id number] Author: Damari Rolon RT(R) Service: ? Author Type: Technologist Type: Progress Notes Filed: 06/03/2023 12:46 PM Note Text: Radiology Service Progress Note PATIENT NAME: Donna Louis DATE OF SERVICE: June 03, 2023 TIME: 12:35 PM PATIENT IDENTITY VERIFICATION COMPLETED USING TWO (2) IDENTIFIERS: Name and Date of confirmed by patient verbally. FALL SCREENING: Has the patient had 2 falls in the last year or 1 fall with injury or currently using an Ambulatory Assistive Device (Walker, Cane, Wheelchair, Crutches, etc.)? No PATIENT GENDER DATA: Female. status: : No status: NO. PATIENT RELEVANT IMPLANT DATA REVIEWED: Not Applicable RADIOLOGY DEPARTMENT: Mammography PERIPHERAL IV DATA: Not applicable SIGNED BY: RT Bethany(R) June 03, 2023 12:35 PM [facility] 06-03-2023 History of Presen t illness Narrative Radiology Service Progress Note PATIENT NAME: Donna Louis DATE OF SERVICE: June 03, 2023 TIME: 12:35 PM PATIENT IDENTITY VERIFICATION COMPLETED USING TWO (2) IDENTIFIERS: Name and Date of confirmed by patient verbally. FALL SCREENING: Has the patient had 2 falls in the last year or 1 fall with injury or currently using an Ambulatory Assistive Device (Walker, Cane, Wheelchair, Crutches, etc.)? No PATIENT GENDER DATA: Female. status: : No status: NO. PATIENT RELEVANT IMPLANT DATA REVIEWED: Not Applicable RADIOLOGY DEPARTMENT: Mammography PERIPHERAL IV DATA: Not applicable SIGNED BY: RT Bethany(R) June 03, 2023 12:35 PM documented in this encounter [facility] 05-23-2023 Miscellaneous Notes Pt notified referral paperwork has been faxed in, updated pt she will need to schedule with there office when Provider comes to [place]. Referral paperwork faxed to [phone]. Zayra Kline Ma OK to refer as requested Jonathan Aviles MD See pt message and advise. Pended referral. Zayra Kline Ma documented in this encounter [facility] 01-10-2023 Note HNO ID: [id number] Author: Jonathan Aviles MD Service: ? Author Type: Physician Type: Progress Notes Filed: 01/10/2023 12:25 PM Note Text: Chief Complaint Patient presents with: Physical HPI Donna Louis is a 62 year old female who presents here today for physical. Last OV November 2021. Went on a motorcycle trip to [facility] at beginning of the month. Has a camper that they put their cycles in when traveling long distances. Declined Hep C and HIV screening. Declined Tdap, Pneumonia vaccines. She has had the shingrix vaccines. HM: Depression screening: denies feeling depressed or hopeless. Depression screening tool completed and reviewed. Based on score and interview, patient is not at risk for depression. Screening tool discussed with patient, and I recommended no further intervention at this time Still smoking 5-7 cigarettes a day, no interest in quitting. No bowel, Gi, or urinary issues. Sleeps okay at night, occ will have some trouble falling asleep but nothing concerning. No chest pains, dizziness, or SOB. Her maternal grandfather young from heart attack. Both her parents are 90 and living. Tries to watch diet. Eats fruit and vegetables daily. Has half her plate filled with veg/fruits and a small portion for meat and potatoes. She does not eat much meat or dairy. Denies much exercise but does try to stay busy. She has a lot of back pain if she does too much. Has to take a lot of rests. Pt prefers not to be on medication till she has to. Still does some of the exercises and stretches that she was taught in Physical Therapy, is not sure if it helps with her pain but thinks it keeps it from getting worse. The 10-year ASCVD risk score (Madai NETTLES, et al., 2019) is: 10.3% Values used to calculate the score: Age: 62 years Sex: Female Is Non- : No Diabetic: No Tobacco smoker: Yes Systolic Blood Pressure: 120 mmHg Is BP treated: No HDL Cholesterol: 48 mg/dL Total Cholesterol: 264 mg/dL Past medical history, appointments, medications, allergies reviewed. Previous Medical History PAST MEDICAL HISTORY Diagnosis Date NEGATIVE MEDICAL HISTORY Previous Surgical History PAST SURGICAL HISTORY Procedure Laterality Date LAPAROSCOPY SURG CHOLECYSTECTOMY 1997 Cholecystectomy, lap PAST SURGICAL HISTORY OF 1976 wisdom teeth Family History FAMILY HISTORY Problem Relation Age of Onset Heart Maternal Grandfather [place] in his 50's Heart Paternal Grandmother Alzheimer's Disease Paternal Grandfather Patient Allergies ALLERGIES No Known Allergies Current Medications No current outpatient medications on file prior to visit. No current facility-administered medications on file prior to visit. Social History Social History Tobacco Use Smoking status: Every Day Packs/day: 0.30 Years: 20.00 Pack years: 6.00 Types: Cigarettes Smokeless tobacco: Never Substance Use Topics Alcohol use: Yes Comment: 1 drink per year. Drug use: No EXAM: BP 120/68 Pulse 78 Resp 16 Ht 165.1 cm (5' 5 ) Wt 82.6 kg (182 lb 3.2 oz) BMI 30.32 kg/m? General Appearance: Well appearing, alert, in no acute distress, well-hydrated, well nourished. and Overweight. Neck: Supple, no adenopathy; thyroid symmetric, normal size. Lungs: Lungs clear to auscultation. No wheezing, rhonchi, rales.. Heart: RRR without murmur, gallop, or rubs. No ectopy. Health Maintenance List PNEUMOCOCCAL(1 - PCV) Never done HEPATITIS C SCREENING Never done HIV SCREENING Never done SHINGRIX VACCINE(1 of 2) Never done PAP TESTING due on 03/11/2015 HPV TESTING due on 03/11/2015 DTAP,TDAP,TD(2 - Td or Tdap) due on 03/04/2020 DEPRESSION ASSESSMENT due on 07/18/2022 MAMMOGRAM due on 06/02/2023 COVID-19 VACCINE(3 - Booster for Moderna series) due on 06/02/2023 INFLUENZA(Season Ended) due on 03/18/2023 COLORECTAL CANCER SCREENING due on 06/04/2023 DIABETES SCREEN due on 07/22/2025 LIPID SCREEN due on 07/22/2027 Data reviewed None ASSESSMENT/PLAN: 1. Wellness examination - ICD9: V70.0, ICD10: Z00.00 (primary diagnosis) - Counseled on healthy diet and regular exercise - Calcium intake with supplements or by diet of 1000 mg/day for under 50, 0392-3700 mg/day for 50+ - Discussed need and benefit for weight loss. BMI 30.32 kg/(m2) - Smoking cessation encouraged; discussed risks to health and quitting strategies. Patient is not ready to quit - Depression screening tool completed and reviewed with patient. Based on score and interview, patient is not at risk for depression and recommended no further intervention at this time. - Follow up for annual exam in one year 2. Smoking history - ICD9: V15.82, ICD10: Z87.891 Recommend quitting 3. Lipidemia Monitor for now Follow up in 1 year with fasting labs prior. I agree with the Chief Complaint, ROS, and Past Histories independently gathered by the clinical java support engineer a (more content not included)... [facility] 01-10-2023 History of Presen t illness Narrative Chief Complaint Patient presents with: Physical HPI Donna Louis is a 62 year old female who presents here today for physical. Last OV November 2021. Went on a motorcycle trip to [facility] at beginning of the month. Has a camper that they put their cycles in when traveling long distances. Declined Hep C and HIV screening. Declined Tdap, Pneumonia vaccines. She has had the shingrix vaccines. HM: Depression screening: denies feeling depressed or hopeless. Depression screening tool completed and reviewed. Based on score and interview, patient is not at risk for depression. Screening tool discussed with patient, and I recommended no further intervention at this time Still smoking 5-7 cigarettes a day, no interest in quitting. No bowel, Gi, or urinary issues. Sleeps okay at night, occ will have some trouble falling asleep but nothing concerning. No chest pains, dizziness, or SOB. Her maternal grandfather young from heart attack. Both her parents are 90 and living. Tries to watch diet. Eats fruit and vegetables daily. Has half her plate filled with veg/fruits and a small portion for meat and potatoes. She does not eat much meat or dairy. Denies much exercise but does try to stay busy. She has a lot of back pain if she does too much. Has to take a lot of rests. Pt prefers not to be on medication till she has to. Still does some of the exercises and stretches that she was taught in Physical Therapy, is not sure if it helps with her pain but thinks it keeps it from getting worse. The 10-year ASCVD risk score (Madai NETTLES, et al., 2019) is: 10.3% Values used to calculate the score: Age: 62 years Sex: Female Is Non- : No Diabetic: No Tobacco smoker: Yes Systolic Blood Pressure: 120 mmHg Is BP treated: No HDL Cholesterol: 48 mg/dL Total Cholesterol: 264 mg/dL Past medical history, appointments, medications, allergies reviewed. Previous Medical History PAST MEDICAL HISTORY Diagnosis Date NEGATIVE MEDICAL HISTORY Previous Surgical History PAST SURGICAL HISTORY Procedure Laterality Date LAPAROSCOPY SURG CHOLECYSTECTOMY 1997 Cholecystectomy, lap PAST SURGICAL HISTORY OF 1976 wisdom teeth Family History FAMILY HISTORY Problem Relation Age of Onset Heart Maternal Grandfather SC in his 50's Heart Paternal Grandmother Alzheimer's Disease Paternal Grandfather Patient Allergies ALLERGIES No Known Allergies Current Medications No current outpatient medications on file prior to visit. No current facility-administered medications on file prior to visit. Social History Social History Tobacco Use Smoking status: Every Day Packs/day: 0.30 Years: 20.00 Pack years: 6.00 Types: Cigarettes Smokeless tobacco: Never Substance Use Topics Alcohol use: Yes Comment: 1 drink per year. Drug use: No EXAM: BP 120/68 Pulse 78 Resp 16 Ht 165.1 cm (5' 5 ) Wt 82.6 kg (182 lb 3.2 oz) BMI 30.32 kg/m General Appearance: Well appearing, alert, in no acute distress, well-hydrated, well nourished. and Overweight. Neck: Supple, no adenopathy; thyroid symmetric, normal size. Lungs: Lungs clear to auscultation. No wheezing, rhonchi, rales.. Heart: RRR without murmur, gallop, or rubs. No ectopy. Health Maintenance List PNEUMOCOCCAL(1 - PCV) Never done HEPATITIS C SCREENING Never done HIV SCREENING Never done SHINGRIX VACCINE(1 of 2) Never done PAP TESTING due on 03/11/2015 HPV TESTING due on 03/11/2015 DTAP,TDAP,TD(2 - Td or Tdap) due on 03/04/2020 DEPRESSION ASSESSMENT due on 07/18/2022 MAMMOGRAM due on 06/02/2023 COVID-19 VACCINE(3 - Booster for Moderna series) due on 06/02/2023 INFLUENZA(Season Ended) due on 03/18/2023 COLORECTAL CANCER SCREENING due on 06/04/2023 DIABETES SCREEN due on 07/22/2025 LIPID SCREEN due on 07/22/2027 Data reviewed None ASSESSMENT/PLAN: 1. Wellness examination - ICD9: V70.0, ICD10: Z00.00 (primary diagnosis) - Counseled on healthy diet and regular exercise - Calcium intake with supplements or by diet of 1000 mg/day for under 50, 7941-4453 mg/day for 50+ - Discussed need and benefit for weight loss. BMI 30.32 kg/(m^2) - Smoking cessation encouraged; discussed risks to health and quitting strategies. Patient is not ready to quit - Depression screening tool completed and reviewed with patient. Based on score and interview, patient is not at risk for depression and recommended no further intervention at this time. - Follow up for annual exam in one year 2. Smoking history - ICD9: V15.82, ICD10: Z87.891 Recommend quitting 3. Lipidemia Monitor for now Follow up in 1 year with fasting labs prior. I agree with the Chief Complaint, ROS, and Past Histories independently gathered by the clinical java support engineer and the remaining scribed note accurately describes my personal service to the patient. Jonathan Aviles MD The documentation for this note was completed by Donna Christine Ma acting as scribe for Jonathan Aviles MD. January 10, 2023 12:13 PM. Donna Christine Ma documented in this encounter [facility] 06-02-2022 History of Presen t illness Narrative Chief Complaint Patient presents with: Sinus Problem HPI Donna Louis is a 62 year old female who presents here today for an acute visit. Pt scheduled via [employer]. Pt c/o of symptoms of a sinus infection x 2 months. Originally started as a cold with sore throat and cough which have improved but now has linger head and nasal congestion, ears are plugged, facial tenderness, teeth hurt, eyes crust up in the mornings. Denies any fever, sob, or wheezing. Has been using saline nasal spray. Still smoking some. She did not complete her routine labs and iFOBT from the spring; will re-order Past medical history, appointments, medications, allergies reviewed. Previous Medical History PAST MEDICAL HISTORY Diagnosis Date NEGATIVE MEDICAL HISTORY Previous Surgical History PAST SURGICAL HISTORY Procedure Laterality Date LAPAROSCOPY SURG CHOLECYSTECTOMY 1997 Cholecystectomy, lap PAST SURGICAL HISTORY OF 1976 wisdom teeth Family History FAMILY HISTORY Problem Relation Age of Onset Heart Maternal Grandfather SC in his 50's Heart Paternal Grandmother Alzheimer's Disease Paternal Grandfather Patient Allergies ALLERGIES No Known Allergies Current Medications No current outpatient medications on file prior to visit. No current facility-administered medications on file prior to visit. Social History Social History Tobacco Use Smoking status: Every Day Packs/day: 0.30 Years: 20.00 Pack years: 6.00 Types: Cigarettes Smokeless tobacco: Never Substance Use Topics Alcohol use: Yes Comment: 1 drink per year. Drug use: No EXAM: BP 140/80 Pulse 88 Temp 37.2 C (98.9 F) (Tympanic) Resp 16 Wt 82.6 kg (182 lb) BMI 29.38 kg/m General Appearance: Well appearing, alert, in no acute distress, well-hydrated, well nourished.. Head: Mild maxillary tenderness Ears: External ears normal, canals clear. Neck: Supple, no adenopathy; thyroid symmetric, normal size, no bruits. Lungs: Lungs clear to auscultation. No wheezing, rhonchi, rales.. Heart: RRR without murmur, gallop, or rubs. No ectopy. Health Maintenance List PNEUMOCOCCAL(1 - PCV) Never done HEPATITIS C SCREENING Never done HIV SCREENING Never done SHINGRIX VACCINE(1 of 2) Never done MAMMOGRAM due on 04/24/2013 PAP TESTING due on 03/11/2015 HPV TESTING due on 03/11/2015 DTAP,TDAP,TD(2 - Td or Tdap) due on 03/04/2020 COVID-19 VACCINE(3 - Booster for Moderna series) due on 02/21/2021 DEPRESSION ASSESSMENT Never done COLORECTAL CANCER SCREENING due on 12/09/2021 INFLUENZA(1) Never done DIABETES SCREEN due on 11/19/2023 LIPID SCREEN due on 11/18/2025 Data reviewed none ASSESSMENT/PLAN: 1. Bacterial sinusitis - ICD9: 473.9, 041.9, ICD10: J32.9, B96.89 (primary diagnosis) - Will begin treatment with Augmentin 875 mg PO BID for 10 days 2. Wellness examination - ICD9: V70.0, ICD10: Z00.00 Labs re-ordered - COMP METABOLIC PANEL - LIPID PANEL BASIC - CBC - COMP METABOLIC PANEL 3. Screening for colon cancer - ICD9: V76.51, ICD10: Z12.11 - FECAL OCCULT BLOOD TEST Notify of lab results Call if not improving in 5-7 days I agree with the Chief Complaint, ROS, and Past Histories independently gathered by the clinical java support engineer and the remaining scribed note accurately describes my personal service to the patient. Medical Decision Making: Problems: Low: Acute, uncomplicated illness or injury Risk: Moderate: Drug management Medical Decision Making Level: 3 - Low Jonathan Aviles MD The documentation for this note was completed by Donna Christine Ma acting as scribe for Jonathan Aviles MD. June 02, 2022 5:41 PM. Donna Christine Ma documented in this encounter [facility] 11-26-2021 History of Presen t illness Narrative Chief Complaint Patient presents with: Physical HPI Donna Louis is a 61 year old female who presents here today for a Wellness Exam. Has 4 grand children that live local in [place] and [place]. Declined mammogram, PAP, Colonoscopy, Hep C and HIV Screening. Declined vaccines today, she will check with insurance first. Had 2 covid vaccines, has not had any boosters. Pt is a smoker, smoking about 5 cigarettes per day. Not interested in quitting at this time, enjoys the few cigarettes. Denies any stomach, bowel or urinary issues. Declined colonoscopy but willing to do IFOBT. Denies any chest pain, sob or dizziness. Tries to watch her diet, does get fruits and vegetables daily. She does walk for exercise. Previously had issues with her left hip and left sided sciatica. Has done PT in the past. No longer using mobic 15 mg 1 tab po once daily. She had Cortisone injection to the back in the L5 and L7 yesterday which has helped. Follows with Dr. Woodard at [facility]. Past medical history, appointments, medications, allergies reviewed. Previous Medical History PAST MEDICAL HISTORY Diagnosis Date NEGATIVE MEDICAL HISTORY Previous Surgical History PAST SURGICAL HISTORY Procedure Laterality Date LAPAROSCOPIC CHOLEYCYSTECTOMY 1997 Cholecystectomy, lap PAST SURGICAL HISTORY OF 1975 wisdom teeth Family History FAMILY HISTORY Problem Relation Age of Onset Heart Maternal Grandfather SC in his 50's Heart Paternal Grandmother Alzheimer's Disease Paternal Grandfather Patient Allergies ALLERGIES No Known Allergies Current Medications Current Outpatient Medications on File Prior to Visit Medication Sig meloxicam (MOBIC) 15 mg tablet Take 1 tablet by mouth once daily. Take with food. No current facility-administered medications on file prior to visit. Social History Social History Tobacco Use Smoking status: Current Every Day Smoker Packs/day: 0.30 Years: 20.00 Pack years: 6.00 Types: Cigarettes Smokeless tobacco: Never Used Substance Use Topics Alcohol use: Yes Comment: 1 drink per year. Drug use: No EXAM: BP 124/70 Pulse 74 Resp 16 Ht 167.6 cm (5' 6 ) Wt 84.3 kg (185 lb 14.4 oz) BMI 30.01 kg/m General Appearance: Well appearing, alert, in no acute distress, well-hydrated, well nourished. Neck: Supple, no adenopathy; thyroid symmetric, normal size. Lungs: Lungs clear to auscultation. No wheezing, rhonchi, rales.. Heart: RRR without murmur, gallop, or rubs. No ectopy. Abdomen: Normal abdominal exam, Abdomen soft, non-tender. Bowel sounds normal. No masses, organomegaly. Extremities: No deformities, edema, skin discoloration, clubbing or cyanosis. Good capillary refill. . Health Maintenance List ONE PNEUMOVAX PRIOR TO AGE 65 Never done SHINGRIX VACCINE(1 of 2) Never done MAMMOGRAM due on 04/24/2013 PAP TESTING due on 03/11/2015 HPV TESTING due on 03/11/2015 DTAP,TDAP,TD(2 - Td or Tdap) due on 03/04/2020 COVID-19 VACCINE(3 - Booster for Moderna series) due on 05/29/2021 COLORECTAL CANCER SCREENING due on 12/09/2021 HEPATITIS C SCREENING due on 11/21/2021 HIV SCREENING due on 11/21/2021 DEPRESSION SCREENING due on 11/20/2021 INFLUENZA(Season Ended) due on 03/18/2022 DIABETES SCREEN due on 11/19/2023 LIPID SCREEN due on 11/18/2025 MENINGOCOCCAL CONJUGATE Aged Out Data reviewed None ASSESSMENT/PLAN: 1. Wellness examination - ICD9: V70.0, ICD10: Z00.00 (primary diagnosis) - Counseled on healthy diet and regular exercise - Calcium intake with supplements or by diet of 1000 mg/day for under 50, 7732-1815 mg/day for 50+ - Discussed need and benefit for weight loss. BMI 30.00 kg/(m^2) - Colorectal cancer screening recommended - agrees to iFOBT testing - Smoking cessation encouraged; discussed risks to health and quitting strategies. Patient is not ready to quit - Depression screening tool completed and reviewed with patient. Based on score and interview, patient is not at risk for depression and recommended no further intervention at this time. - Follow up for annual exam in one year 2. Screening for colon cancer - ICD9: V76.51, ICD10: Z12.11 - FECAL OCCULT BLOOD TEST Follow up in 1 year. Will call with lab results. I agree with the Chief Complaint, ROS, and Past Histories independently gathered by the clinical java support engineer and the remaining scribed note accurately describes my personal service to the patient. Jonathan Aviles MD The documentation for this note was completed by Donna Christine Ma acting as scribe for Jonathan Aviles MD. November 26, 2021 8:09 AM. Donna Christine Ma documented in this encounter [facility] 11-25-2021 Hospital Discharg e instructions Patient Education 11/25/2021 07:44:53 How to Use Cold Therapy, [id number] How to Use Cold Therapy Cold therapy, or cryotherapy, is a treatment that uses cold temperatures to treat an injury or medical condition. It includes using cold packs or ice packs to reduce pain and swelling. Only use cold therapy if your doctor says it is okay. What are the risks? Generally, cold therapy is a safe treatment. However, it is not safe for: People who are not able to say they are in pain. These include small children and people who have memory problems. People who have certain conditions, such as: ?A problem in the vessels that slows blood flow to the fingers and toes (Raynaud's syndrome). ?Feeling very cold easily (cold hypersensitivity). ?Lack of feeling in the area being iced. Cold therapy may not be safe for people who have other conditions. Do not use it without talking to your doctor if you have: A heart condition. High blood pressure. Open or healing wounds. An infection. Pain and swelling in your joints (rheumatoid arthritis). Poor blood flow in the body. Diabetes. Certain skin conditions. How can I make a cold pack? When using a cold pack at home to reduce pain and swelling, you can use: A silica gel cold pack that has been left in the freezer. You can buy this online or in stores. A sealable plastic bag that has been filled with crushed ice. A washcloth or paper towels soaked in cold (or ice) water. A plastic bag of frozen vegetables. Throw them away when you are finished using them as a cold pack. Supplies needed: A cold pack. A towel. This can be dry or damp, based on what you like. How to use cold therapy 1.Have your cold pack ready. 2.Place a towel between the cold pack and your skin. You may also wrap the cold pack in a towel. 3.Put the cold pack on the affected area. Keep it on for no more than 20 minutes at a time. 4.Check your skin after 5 minutes to make sure that there is no damage to the area. Check for: White spots on your skin. Your skin may look blotchy or mottled. Skin that looks blue or pale. Skin that feels waxy or hard. 5.Repeat these steps as many times each day as told by your doctor. Always use a towel to avoid direct contact with your skin. Contact a doctor if: You start to have white spots on your skin. This may give your skin a blotchy or mottled look. Your skin turns blue or pale. Your skin becomes waxy or hard. Your swelling gets worse. Summary Cold therapy, or cryotherapy, is used to treat an injury or other conditions. It includes using cold packs or ice packs to reduce pain and swelling. Cold therapy is not safe for people who are not able to say they are in pain. When using cold packs or ice packs, always place a towel between the cold source and your skin. Check your skin after 5 minutes of icing it. This is to make sure that there is no skin damage. Contact your doctor if you notice changes in your skin or your swelling gets worse. This information is not intended to replace advice given to you by your health care provider. Make sure you discuss any questions you have with your health care provider. Document Released: 12/20/2008 Document Revised: 04/02/2019 Document Reviewed: 04/02/2019 [employer] Patient Education 2020 [employer]. 11/25/2021 07:44:05 Epidural Steroid Injection, Care After Epidural Steroid Injection, Care After Refer to this sheet in the next few weeks. These instructions provide you with information about caring for yourself after your procedure. Your health care provider may also give you more specific instructions. Your treatment has been planned according to current medical practices, but problems sometimes occur. Call your health care provider if you have any problems or questions after your procedure. What can I expect after the procedure? After your procedure, it is common to feel a little discomfort at the injection site. Follow these instructions at home: For 24 hours after the procedure: ?Avoid using heat on the injection site. ?Do not take a tub bath, and do not soak in water. ?Do not drive if you received a medicine to help you relax (sedative). If directed, put ice on the injection site: ?Put ice in a plastic bag. ?Place a towel between your skin and the bag. ?Leave the ice on for 20 minutes, 2 3 times a day. Return to your normal activities as told by your health care provider. Ask your health care provider what activities are safe for you. You may remove the bandage (dressing) after 24 hours. Take mslt-vdc-vnotioz and prescription medicines only as told by your health care provider. Keep all follow-up visits as told by your health care provider. This is important. Contact a health care provider if: You have a fever. You continue to have pain and soreness around the injection site, even after taking ptku-rqo-pthwpcz pain medicine. You have severe, sudden, or lasting nausea or vomiting. Get help right away if: You have severe pain at the injection site that is not relieved by medicines. You develop a severe headache or a stiff neck. You become sensitive to light. You have any new numbness or weakness in your legs or arms. You lose control of your bladder or bowel movements. You have trouble breathing. This information is not intended to replace advice given to you by your health care provider. Make sure you discuss any questions you have with your health care provider. Document Released: 10/19/2011 Document Revised: 06/16/2018 Document Reviewed: 10/19/2016 [employer] Patient Education 2020 [employer]. Follow Up Care 11/13/2021 13:47:56 With:NEERU WOODARD DO, Orthopedic Address: [address] [place] [address], [address] [facility] [place] [address]- [phone] When: Unknown Comments:CALL DR WOODARD WITH ANY QUESTIONS OR CONCERNS. GO TO THE ER WITH ANY URGENT MATTERS. [facility] documented as of this encounter (statuses as of 11/26/2021) [facility] History of Past illness Narrative* Problem Noted Date Resolved Date Right flank pain 05/03/2013 07/02/2013 documented as of this encounter (statuses as of 05/31/2022) [facility] History of Past illness Narrative* Problem Noted Date Resolved Date Right flank pain 05/03/2013 07/02/2013 documented as of this encounter (statuses as of 06/03/2022) [facility] History of Past illness Narrative* Problem Noted Date Resolved Date Right flank pain 05/03/2013 07/02/2013 documented as of this encounter (statuses as of 01/10/2023) [facility] History of Past illness Narrative* Problem Noted Date Diagnosed Date Resolved Date Right flank pain 05/03/2013 07/02/2013 documented as of this encounter (statuses as of 05/24/2023) [facility] History of Past illness Narrative* Problem Noted Date Diagnosed Date Resolved Date Right flank pain 05/03/2013 07/02/2013 documented as of this encounter (statuses as of 06/04/2023) [facility] History of Past illness Narrative* Problem Noted Date Diagnosed Date Resolved Date Right flank pain 05/03/2013 07/02/2013 documented as of this encounter (statuses as of 06/08/2023) [facility] Plan note No data available for this section [facility] Evaluation note* Diagnosis Wellness examination- Primary Screening for colon cancer Special screening for malignant neoplasms, colon [facility] Diagnosis Encounter for screening mammogram for breast cancer [facility]* Diagnosis Bacterial sinusitis- Primary Unspecified sinusitis (chronic) Wellness examination Screening for colon cancer Special screening for malignant neoplasms, colon [facility]* Diagnosis Wellness examination- Primary Smoking history Personal history of tobacco use, presenting hazards to health Moderate mixed hyperlipidemia not requiring statin therapy [facility] Diagnosis Low back pain, unspecified back pain laterality, unspecified chronicity, unspecified whether sciatica present- Primary [facility] Diagnosis Encounter for screening mammogram for breast cancer [facility] No data available for this section [facility] Reason for referral (narrative)* Diagnostic Procedure Only (Routine) - Pending Review Specialty Diagnoses / Procedures Referred By Savita griffin Referred To Contact [facility] Diagnoses Encounter for screening mammogram for breast cancer Procedures SARABJIT SCREENING SCREENING MAMMOGRAPHY BI 2-VIEW BREAST INC Jonathan Davis MD [address] [place] [address] [facility] [address] [place] [address] Referral ID Status Reason Start Date Expiration Date Visits Requested Visits Authorized [id number] Pending Review Auto-Generat ed Referral 05/26/2022 06/25/2023 1 1 [facility] for visit Narrative* Diagnostic Procedure Only (Routine) - Closed Specialty Diagnoses / Procedures Referred By Savita t Referred To Contact [facility] Diagnoses Encounter for screening mammogram for breast cancer Procedures SRAABJIT SCREENING SCREENING MAMMOGRAPHY BI 2-VIEW BREAST INC Jonathan Davis MD [address] [place] [address] [facility] [address] [place] [address] Referral ID Status Reason Start Date Expiration Date V isits Requested Visits Authorized [id number] Closed Auto-Generate d Referral 05/26/2022 06/25/2023 1 1 [facility] Advance Directives No Advanced Directives Records FoundDocuments on File Type Date Recorded Patient Manager Pet Expl anation Advance Directive(s) Summary Purpose Family History No Family History Records FoundNo Family History Records Found Reason for Referral Specialty Diagnoses / Procedures Referred By Savita griffin Referred To Contact Orthopedics Diagnoses Low back pain, unspecified back pain laterality, unspecified chronicity, unspecified whether sciatica present Procedures CONSULT TO ORTHOPAEDICS Jonathan Aviles MD [address] [place] [address] Referral ID Status Reason Start Date Expiration Date Visits Requested Visits Authorized [id number] Ref Not Required PCP Requested Referral 05/23/2023 05/22/2024 1 1 Additional Source Comments Care Team (unrecognized sect ion and content) Front Office Director Relationship Specialty Start Date End Date Jonathan Aviles MD [address] [place], [place] [id number] PCP - General Family Medicine 05/26/21 Front Office Director Relationship Specialty Start Date End Date Jonathan Aviles MD [address] [facility], [place] [id number] PCP - General Family Medicine 05/26/21 Front Office Director Relationship Specialty Start Date End Date Jonathan Aviles MD [address] [facility], [place] [id number] PCP - General Family Medicine 05/26/21 Front Office Director Relationship Specialty Start Date End Date Jonathan Aviles MD [address] [place] [address] PCP - General Family Medicine 05/26/21 Front Office Director Relationship Specialty Start Date End Date Jonathan Aviles MD [address] [place], [place] [id number] PCP - General Family Medicine 05/26/21 Front Office Director Relationship Specialty Start Date End Date Jonathan Aviles MD [address] [facility], [place] [id number] PCP - General Family Medicine 05/26/21 Source Comments (unrecognize d section and content) In the event this informatio n is protected by the Federal Confidentiality of Alcohol and Drug Abuse Patient Records regulations: The Federal rules restrict any use of the information to criminally investigate or prosecute any alcohol or drug abuse patient.[facility] the event this information is protected by the Federal Confidentiality of Alcohol and Drug Abuse Patient Records regulations: The Federal rules restrict any use of the information to criminally investigate or prosecute any alcohol or drug abuse patient.[facility] the event this information is protected by the Federal Confidentiality of Alcohol and Drug Abuse Patient Records regulations: The Federal rules restrict any use of the information to criminally investigate or prosecute any alcohol or drug abuse patient.[facility] the event this information is protected by the Federal Confidentiality of Alcohol and Drug Abuse Patient Records regulations: The Federal rules restrict any use of the information to criminally investigate or prosecute any alcohol or drug abuse patient.[facility] the event this information is protected by the Federal Confidentiality of Alcohol and Drug Abuse Patient Records regulations: The Federal rules restrict any use of the information to criminally investigate or prosecute any alcohol or drug abuse patient.[facility] the event this information is protected by the Federal Confidentiality of Alcohol and Drug Abuse Patient Records regulations: The Federal rules restrict any use of the information to criminally investigate or prosecute any alcohol or drug abuse patient.[facility] the event this information is protected by the Federal Confidentiality of Alcohol and Drug Abuse Patient Records regulations: The Federal rules restrict any use of the information to criminally investigate or prosecute any alcohol or drug abuse patient.[facility] Reason for Visit (unrecogniz ed section and content) Reason Comments Sinus Problem INFORMATION SOURCE (unrecogn ized section and content) DATE CREATED AUTHOR AUTHOR'S ORGANIZ ATION 07/16/2023 [facility] FOR RECORDS PERTAINING TO PATIENTS WHO ARE OR HAVE BEEN ENROLLED IN A CHEMICAL DEPENDENCY/SUBSTANCEABUSE PROGRAM, SOME INFORMATION MAY BE OMITTED. This clinical summary was aggregated from multiple sources. Caution should be exercised in using it in the provision of clinical care. This summary normalizes information from multiple sources, and as a consequence, information in this document may materially change the coding, format and clinical context of patient data. In addition, data may be omitted in some cases. CLINICAL DECISIONS SHOULD BE BASED ON THE PRIMARY CLINICAL RECORDS. [facility] [employer] [facility]. provides no warranty or guarantee of the accuracy or completeness of information in this document.
== END | disposition home or self-care (01) ==
LOC: MTRAD 12:34
PROVIDERS: PCP Family Medicine; Referring Provider Urology; Visit Provider Urology
DX: N20.0 Calculus of kidney (principal)
CPT/HCPCS: 74018

== ENCOUNTER 2023-09-01 12:47 | Day surgery (SDC) | payer MEDICARE, SELFPAY ==
[2023-09-01 13:10] VITALS: BP 112/76; PULSE 85; RESP 16; TEMP 36.4; O2SAT 99; BMI 29.2
[2023-09-01] MEDS: Lactated Ringers 1,000 ML 15 ML IV (13:14)
[2023-09-01] MEDS: Cefazolin 2 GM in 0.9% Normal Saline (100mL Bag) 100 ML IV (13:35)
--- NOTE | 2023-09-01 14:13 | DCINST_ITS ---
Discharge Instructions Diet Discharge Diet: No restrictions Activity Discharge Activity: Return to Normal Activity Dressing / Incision Call your doctor if you observe: Fever of 101 or Higher, Inability to urinate and Inability to have a bowel movement Follow Up Care Please Follow Up With: Nettie eBlle MD When: the office will call her tomorrow to schedule follow up. Test Results: Test results from this visit will be discussed in further detail at your follow- up appointment, if applicable. Discharge Plan Admission Attending Provider: Nettie Belle Primary Care Provider: Koby Young Discharge Orders/Prescriptions Prescriptions: New sulfamethoxazole-trimethoprim [sulfamethoxazole-trimethoprim] 800-160 mg tablet 1 tab PO BID 3 Days Qty: 6 0RF Continued cephalexin 250 mg capsule 250 mg PO QHS Patient Comments: TAKE 1 CAPSULE BY MOUTH DAILY AT BEDTIME Referrals / Follow Up: Koby Young MD [Primary Care Provider] - Disposition Disposition (needs filled in before D/C Order can be placed): Home, Self Care
--- NOTE | 2023-09-01 14:15 | PCM.OPRPT ---
Report of Operation Date of Procedure: 09/01/23 Pre-Operative Diagnosis: bilateral kidney stones Post-Operative Diagnosis: same Surgery/Procedure Performed:: cystoscopy with removal of left ureteral stent, change of right ureteral stent, right renal extracorporal shockwave lithotripsy Surgeon: Nettie Belle Type of Anesthesia: General Description of Procedure: The patient is a 63-year-old female who now presents for right renal extracorporal shockwave lithotripsy with visualization of the left side and removal of the left ureteral stent. Informed consent was obtained. The patient was taken to the operating room and placed on the operating room table. Anesthesia monitored the head, neck, airway, IV access and vital signs throughout the case. Once anesthesia was appropriately administered, the patient was placed in dorsal lithotomy position was prepped and draped the fluoroscopy was used to determine that there were no visible stone fragments along the left ureteral stent. The cystoscope was inserted under direct visualization into the urinary bladder. Bilateral ureteral stents were curled together in the midline and I was unable to remove just the left one as the right one became in position. The decision was made to remove both ureteral stents and replaced the right one. The ureteral stents were removed without difficulty. A 0.035 Glidewire was then placed through the right ureteral orifice into the renal pelvis. A 6 Frisian 26 cm JJ stent was placed over the wire with good positioning in the renal pelvis as well as the urinary bladder. The stone was then fragmented with 3000 shocks. She was awakened and taken to the recovery room in good condition. Grafts/Implants Used: 6 x 26 JJ stent Complications None Admit VTE Documentation VTE Present on Admission: Yes VTE Mechan Device Prophylaxis: SCD's VTE Pharm Prophylaxis ordered?: No Reason prophylaxis not ordered:: Treatment Not Indicated
[2023-09-01 14:45] VITALS: BP 112/76; BP 121/68; PULSE 76; RESP 16; TEMP 36.2; O2SAT 97
[2023-09-01 14:50] VITALS: BP 112/76; BP 113/73; PULSE 74; RESP 18; O2SAT 96
[2023-09-01 14:55] VITALS: BP 112/76; BP 125/72; PULSE 72; RESP 16; TEMP 36.6; O2SAT 96
[2023-09-01 15:16] VITALS: BP 112/76
== END 2023-09-01 15:20 | disposition home or self-care (01) ==
LOC: SDC 12:54 → AC 13:40
PROVIDERS: PCP Family Medicine; Referring Provider Urology; Visit Provider Urology
PROC: (CPT 50590; principal; 2023-09-01 14:25)
DX: N20.0 Calculus of kidney (principal); Z87.448 Personal history of other diseases of urinary system; Z90.49 Acquired absence of other specified parts of digestive tract; Z87.442 Personal history of urinary calculi; F17.200 Nicotine dependence, unspecified, uncomplicated
CPT/HCPCS: 50590; 00918; 52332; J7120; C2617; J2405

== ENCOUNTER → 2023-09-14 | Outpatient (CLI) | payer MEDICARE, SELFPAY ==
--- NOTE | 2023-09-14 09:08 | RAD_ITS ---
INDICATION: KIDNEY STONES EXAMINATION/TECHNIQUE: X-RAY - XR Abdomen 1 View COMPARISON: July 26, [address] dated June 14, 2023 FINDINGS: BOWEL GAS PATTERN: Non-obstructive. No bowel or stomach distention. There is a right-sided ureteral stent in place with the proximal catheter within the expected region of the right renal pelvis and the distal catheter terminating within the expected region of the urinary bladder. There are surgical clips within the right upper quadrant suggestive of prior cholecystectomy. FREE AIR: Not assessed on a single supine view. CALCIFICATIONS: No abnormal calcifications observed. LOWER CHEST: No acute pathology. BONES AND SOFT TISSUES: No acute pathology. RAD/Abdomen Single View IMPRESSION: Non-obstructive bowel gas pattern. Electronically Signed: Oma Zhu MD at 20:09 EST ,
--- OUTSIDE RECORDS SUMMARY | 2023-09-14 11:01 | XMS RPT_ITS | CCD ---
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 Name Role Phone DR JONATHAN AVILES MD [...] 165.1 cm Jonathan Aviles MD Work Phone: [facility] 01-10-2023 11:57-0400 Body weight 82.64 kg Jonathan Aviles MD Work Phone: [facility] 01-10-2023 11:57-0400 Diastolic blood pressure 68 mm[Hg] Jonathan Aviles MD Work Phone: [facility] 01-10-2023 11:57-0400 Heart rate 78 /min Jonathan Aviles MD Work Phone: [facility] 01-10-2023 11:57-0400 Respiratory rate 16 /min Jonathan Aviles MD Work Phone: [facility] 01-10-2023 11:57-0400 Systolic blood pressure 120 mm[Hg] Jonathan Aviles MD Work Phone: [facility] 06-02-2022 17:50-0500 Body temperature 98.91 [degF] Jonathan Aviles MD Work Phone: [facility] 06-02-2022 17:50-0500 Body weight 82.56 kg Jonathan Aviles MD Work Phone: [facility] 06-02-2022 17:50-0500 Diastolic blood pressure 80 mm[Hg] Jonathan Aviles MD Work Phone: [facility] 06-02-2022 17:50-0500 Heart rate 88 /min Jonathan Aviles MD Work Phone: [facility] 06-02-2022 17:50-0500 Respiratory rate 16 /min Jonathan Aviles MD Work Phone: [facility] 06-02-2022 17:50-0500 Systolic blood pressure 140 mm[Hg] Jonathan Aviles MD Work Phone: [facility] 11-26-2021 08:04-0400 Body height 167.6 cm Jonathan Aviles MD Work Phone: [facility] 11-26-2021 08:04-0400 Body weight 84.32 kg Jonathan Aviles MD Work Phone: [facility] 11-26-2021 08:04-0400 Diastolic blood pressure 70 mm[Hg] Jonathan Aviles MD Work Phone: [facility] 11-26-2021 08:04-0400 Heart rate 74 /min Jonathan Aviles MD Work Phone: [facility] 11-26-2021 08:04-0400 Respiratory rate 16 /min Jonathan Aviles MD Work Phone: [facility] 11-26-2021 08:04-0400 Systolic blood pressure 124 mm[Hg] Jonathan Aviles MD Work Phone: [facility] 11-25-2021 07:58-0400 diastolic 76 mm[Hg] NEERU WOODARD DO [facility] 11-25-2021 07:58-0400 Heart rate 72 /min NEERU WOODARD DO [facility] 11-25-2021 07:58-0400 systolic 122 mm[Hg] NEERU WOODARD DO [facility] 11-25-2021 07:46-0400 diastolic 83 mm[Hg] NEERU WOODARD DO [facility] 11-25-2021 07:46-0400 Heart rate 77 /min NEERU WOODARD DO [facility] 11-25-2021 07:46-0400 systolic 123 mm[Hg] NEERU WOODARD DO [facility] 11-25-2021 07:39-0400 diastolic 76 mm[Hg] NEERU WOODARD DO [facility] 11-25-2021 07:39-0400 Heart rate 78 /min NEERU WOODARD DO [facility] 11-25-2021 07:39-0400 systolic 113 mm[Hg] NEERU WOODARD DO [facility] 11-25-2021 07:31-0400 Body temperature 97.7 [degF] NEERU WOODARD DO [facility] 11-25-2021 06:50-0400 Body height 165.1 cm NEERU WOODARD DO [facility] 11-25-2021 06:50-0400 Body temperature 98.24 [degF] NEERU WOODARD DO [facility] 11-25-2021 06:50-0400 Body weight 86.4 kg NEERU WOODARD DO [facility] 11-25-2021 06:50-0400 Heart rate 87 /min NEERU WOODARD DO [facility] 11-25-2021 06:50-0400 Respiratory rate 12 /min NEERU WOODARD DO [facility] Encounters Encounter Date Encounter Type Care Provider Facility Start: 06-06-2023 Documentation procedure Mammog karen Coordinator [facility] Start: 06-06-2023 Letter encounter Mammography Coordinator [facility] Department Start: 06-03-2023 End: 06-03-2023 ambulatory JONATHAN AVILES Facility:[facility] Start: 06-03-2023 End: 06-03-2023 Subsequent [...] - S marita or Plasma Lipid Screening [facility] Start: 07-22-2027 LIPID SCREEN LIPID SCREEN [facility] Start: 11-18-2025 LIPID SCREEN LIPID SCREEN [facility] Start: 07-22-2025 DIABETES SCREEN DIABETES SCREEN [facility] Start: 07-22-2025 Diabetes Screening Diabetes Screenin g [facility] Start: 06-03-2024 Mammography Mammogram Screening [facility] Start: 11-19-2023 DIABETES SCREEN DIABETES SCREEN [facility] Start: 06-04-2023 COLORECTAL CANCER SCREENING COLORECTAL CANCER SCREENING [facility] Start: 06-04-2023 FECAL OCCULT BLOOD FECAL OCCULT BLOO D [facility] Start: 06-02-2023 COLORECTAL CANCER SCREENING COLORECTAL CANCER SCREENING [facility] Immunizations Immunization Date Immunization Notes Care Provider Fa cility 10-02-2022 zoster vaccine recombinant Jonathan Aviles MD Work Phone: [facility] 07-27-2022 zoster vaccine recombinant Jonathan Aviles MD Work Phone: [facility] 12-27-2020 COVID-19 vaccine, fu ll dose (MODERNA) Jonathan Aviles MD Work Phone: [facility] 11-29-2020 COVID-19 vaccine, fu ll dose (MODERNA) Jonathan Aviles MD Work Phone: [facility] 03-04-2010 tetanus toxoid, redu jonathan diphtheria toxoid, and acellular pertussis vaccine, adsorbed Jonathan Aviles MD Work Phone: [facility] Payers Date Payer Category Payer Unknown [id number] 2020 Unknown RACQUEL AYON O DEVIN [id number] 2020-Present [phone] [address] [place] [address] [facility] [id number] 2020 Unknown [id number] 2020 Unknown [id number] Social History Date Type Detail Facility Start: 11-25-2021 Tobacco smoking status Light tobacco smoker (finding) [facility] Start: 1960 Sex Assigned At Female [facility] Start: 09-25-2012 Tobacco smoking status NHIS Smokes tobacco daily [facility] History of tobacco use Cigarette Smoker [facility] Start: 11-26-2021 End: 01-10-2023 Alcohol intake Current drinker of alcohol (finding) [facility] Start: 11-20-2020 End: 01-05-2023 History SDOH Alcohol Frequency 1 [facility] Start: 06-18-2013 History SDOH Alcohol Comment 1 drink per year. [facility] Start: 11-20-2020 End: 01-05-2023 History SDOH Social Connections Phone 3 [facility] Start: 11-20-2020 End: 01-05-2023 History SDOH Social Connections Judaism 2 [facility] Start: 11-20-2020 End: 01-05-2023 History SDOH Physical Activity DPW 5 [facility] Start: 11-20-2020 Education 17 [facility] Start: 11-16-2021 End: 06-02-2022 Exposure to SARS-CoV-2 (event) Not sure [facility] Start: 09-25-2012 End: 01-05-2023 Cigarettes smoked current (pack per day) - Reported 0.3 [facility] Start: 09-25-2012 Tobacco use and exposure Smokeless tobacco non-user [facility] Start: 01-05-2023 History SDOH Alcohol Std Drinks 0 [facility] Start: 01-05-2023 History SDOH Social Connections Meetings 98 [facility] Start: 01-05-2023 End: 01-10-2023 Social connection and isolation panel [facility] Do you belong to any clubs or organizations such as episcopal groups, unions, fraternal or athletic groups, or school groups? No [facility] How often do you att end meetings of the clubs or organizations you belong to? Patient refused [facility] Are you now , , , , never or living with a partner? [facility] How often to you hav e a drink containing alcohol? Never [facility] Do you feel stress - tense, restless, nervous, or anxious, or unable to sleep at night because your mind is troubled all the time - these days [OSQ] Not at all [facility] (I/We) worried wheth er (my/our) food would run out before (I/we) got money to buy more. Never true [facility] Start: 11-20-2020 Gender identity Identifies as female gender (finding) [facility] Start: 11-20-2020 Sexual orientation Heterosexual (finding) [facility] Medical Equipment Procedure Code Equipment Code Equipment Origin al Text Equipment Identifier Dates Stent Uret 7fr 2 4cm W/O Gw Inl - [id number] Start: 07-19-2013 Functional Status Date Assessment Result Facility 11-25-[address] [facility] 11-25-2021 [facility] Mental Status Date Assessment Result Facility 11-25-2021 Mental Status [facility] Clinical Notes 05-03-2013 to 07-14-2023 Letter - Coordinator, [facility] - 06/06/2023 9:59 AM Damari Capone RT(Nichole) - 06/03/2023 12:30 PM ESTTelephone Encounter - Zayra Kline Ma - 05/23/2023 4:10 PM EST Note Date & Type Note Facility 07-14-2023 Note Patient Outreach (CLEMENTINE TNAV) DONNA LOUIS ([id number]) 1960 F Date Time Provider Department 07/14/23 [...] guardian: Patient declined. Not interested in scheduling Gramovoxhart message sent Advance Directives sent Did you use a PCP flex slot to schedule this appointment? N/A Reason for Outreach Care Gap or Scheduling/Wellness visits Payer: Payor: RACQUEL [employer] / Plan: RACQUEL [employer] HMO / Product Type: HMO / Care [...] Encounter Status:Closed by LISA MULLIGAN on 07/14/23 [facility] 07-14-2023 Note HNO ID: [id number] Author: Lisa Mulligan PSS Service: ? Author [...] guardian: Patient declined. Not interested in scheduling Gramovoxhart message sent Advance Directives sent Did you use a PCP flex slot to schedule this appointment? N/A Reason for Outreach Care Gap or Scheduling/Wellness visits Payer: Payor: [employer] / Plan: [employer] HMO / Product Type: HMO / Care [...] EBER Garcia July 14, 2023 8:32 AM [facility] 06-06-2023 Miscellaneous Notes June 06, 2023 PID: [id number] Donna Louis [address] [place] [address] Dear Ms. Louis, We are pleased to [...] report will be kept on file at [facility] as part of your permanent medical record and are available for your continuing care. Thank you for allowing us to help in meeting your health care needs. Sincerely, Dr. Werner Interpreting Radiologist [facility] (Normal over 40) documented in this encounter [facility] 06-03-2023 Note HNO ID: [id number] Author: Damari Rolon RT(R) Service: ? Author [...] RT Bethany(R) June 03, 2023 12:35 PM [facility] 06-03-2023 History of Presen t illness [...] 2023 12:35 PM documented in this encounter [facility] 05-23-2023 Miscellaneous Notes Pt notified referral paperwork has been faxed in, updated pt she will need to schedule with there office when Provider comes to [place]. Referral paperwork faxed to [phone]. Zayra Kline Ma OK to refer as requested Jonathan Aviles MD See pt message and advise. Pended referral. Zayra Kline Ma documented in this encounter [facility] 01-10-2023 Note HNO ID: [id number] Author: Jonathan Aviles MD Service: ? Author Type: Physician Type: Progress Notes Filed: 01/10/2023 12:25 PM Note Text: Chief Complaint Patient presents with: Physical HPI Donna Louis is a 62 year old female who presents here today for physical. Last OV November 2021. Went on a motorcycle trip to [facility] at beginning of the month. [...] Relation Age of Onset Heart Maternal Grandfather [place] in his 50's Heart Paternal Grandmother Alzheimer's [...] diet of 1000 mg/day for under 50, 8410-6595 mg/day for 50+ - Discussed need and [...] Past Histories independently gathered by the clinical product support specialist a (more content not included)... [facility] 01-10-2023 History of Presen t illness Narrative Chief Complaint Patient presents with: Physical HPI Donna Louis is a 62 year old female who presents here today for physical. Last OV November 2021. Went on a motorcycle trip to [facility] at beginning of the month. [...] Relation Age of Onset Heart Maternal Grandfather [place] in his 50's Heart Paternal Grandmother Alzheimer's [...] diet of 1000 mg/day for under 50, 6572-2242 mg/day for 50+ - Discussed need and [...] Past Histories independently gathered by the clinical product support specialist and the remaining scribed note accurately describes my personal service to the patient. Jonathan Aviles MD The documentation for this note was completed by Donna Christine Ma acting as scribe for Jonathan Aviles MD. January 10, 2023 12:13 PM. Donna Christine Ma documented in this encounter [facility] 06-02-2022 History of Presen t illness Narrative Chief Complaint Patient presents with: Sinus Problem HPI Donna Louis is a 62 year old female who presents here today for an acute visit. Pt scheduled via Beta Dashhart. Pt c/o of symptoms of a sinus [...] Relation Age of Onset Heart Maternal Grandfather [place] in his 50's Heart Paternal Grandmother Alzheimer's [...] Past Histories independently gathered by the clinical product support specialist and the remaining scribed note accurately describes [...] Donna Christine Ma documented in this encounter [facility] 11-26-2021 History of Presen t illness Narrative Chief Complaint Patient presents with: Physical HPI Donna Louis is a 61 year old female who presents here today for a Wellness Exam. Has 4 grand children that live local in [place] and [place]. Declined mammogram, PAP, Colonoscopy, Hep C and [...] has helped. Follows with Dr. Woodard at [facility]. Past medical history, appointments, medications, allergies reviewed. Previous Medical History PAST MEDICAL HISTORY Diagnosis Date NEGATIVE MEDICAL HISTORY Previous Surgical History PAST SURGICAL HISTORY Procedure Laterality Date LAPAROSCOPIC CHOLEYCYSTECTOMY 1997 Cholecystectomy, lap PAST SURGICAL HISTORY OF 1975 wisdom teeth Family History FAMILY HISTORY Problem Relation Age of Onset Heart Maternal Grandfather [place] in his 50's Heart Paternal Grandmother Alzheimer's [...] diet of 1000 mg/day for under 50, 5797-3247 mg/day for 50+ - Discussed need and [...] Past Histories independently gathered by the clinical product support specialist and the remaining scribed note accurately describes my personal service to the patient. Jonathan Aviles MD The documentation for this note was completed by Donna Christine Ma acting as scribe for Jonathan Aviles MD. November 26, 2021 8:09 AM. Donna Christine Ma documented in this encounter [facility] 11-25-2021 Hospital Discharg e instructions Patient Education 11/25/2021 07:44:53 How to Use Cold Therapy, [id number]-dm-[id number] How to Use Cold Therapy Cold therapy, [...] 12/20/2008 Document Revised: 04/02/2019 Document Reviewed: 04/02/2019 [employer] Patient Education 2020 [employer]. 11/25/2021 07:44:05 Epidural Steroid Injection, Care After [...] the bandage (dressing) after 24 hours. Take aoxa-nej-fvcgddm and prescription medicines only as told by your health care provider. Keep all follow-up visits as told by your health care provider. This is important. Contact a health care provider if: You have a fever. You continue to have pain and soreness around the injection site, even after taking skei-imo-utmegss pain medicine. You have severe, sudden, or [...] 10/19/2011 Document Revised: 06/16/2018 Document Reviewed: 10/19/2016 [employer] Patient Education 2020 Angle. Follow Up Care 11/13/2021 13:47:56 With:NEERU WOODARD DO, Orthopedic Address: [address] [place] [address], [address] [facility] [place] [address]- [phone] When: Unknown Comments:CALL DR WOODARD WITH ANY QUESTIONS OR CONCERNS. GO TO THE ER WITH ANY URGENT MATTERS. [facility] documented as of this encounter (statuses as of 11/26/2021) [facility]10-17-2013 History of Past illness Narrative* Problem Noted Date Resolved Date Right flank pain 05/03/2013 07/02/2013 documented as of this encounter (statuses as of 05/31/2022) [facility]10-[facility] History of Past illness Narrative* Problem Noted Date Resolved Date Right flank pain 05/03/2013 07/02/2013 documented as of this encounter (statuses as of 06/03/2022) [facility]10-17-[facility] History of Past illness Narrative* Problem Noted Date Resolved Date Right flank pain 05/03/2013 07/02/2013 documented as of this encounter (statuses as of 01/10/2023) [facility] History of Past illness Narrative* Problem Noted Date Diagnosed Date Resolved Date Right flank pain 05/03/2013 07/02/2013 documented as of this encounter (statuses as of 05/24/2023) [facility]10[facility] History of Past illness Narrative* Problem Noted Date Diagnosed Date Resolved Date Right flank pain 05/03/2013 07/02/2013 documented as of this encounter (statuses as of 06/04/2023) [facility]10[facility] History of Past illness Narrative* Problem Noted Date Diagnosed Date Resolved Date Right flank pain 05/03/2013 07/02/2013 documented as of this encounter (statuses as of 06/08/2023) [facility] + Plan note No data available for this section [facility] Evaluation note* Diagnosis Wellness examination- Primary Screening for colon cancer Special screening for malignant neoplasms, colon documented [facility] Diagnosis Encounter for screening mammogram for breast cancer documented [facility] Diagnosis Bacterial sinusitis- Primary Unspecified sinusitis (chronic) Wellness examination Screening for colon cancer Special screening for malignant neoplasms, colon documented in this encounter [facility] Diagnosis Wellness examination- Primary Smoking history Personal history of tobacco use, presenting hazards to health Moderate mixed hyperlipidemia not requiring statin therapy documented [facility] this encounter [facility] Diagnosis Low back pain, unspecified back pain laterality, unspecified chronicity, unspecified whether sciatica present- Primary documented [facility] this encounter [facility] Diagnosis Encounter for screening mammogram for breast cancer documented in this encounter [facility] No data available for this section [facility] Reason for referral (narrative)* Diagnostic Procedure Only (Routine) - Pending Review Specialty Diagnoses / Procedures Referred By Savita griffin Referred To Contact [facility] Diagnoses Encounter for screening mammogram for breast cancer Procedures SARABJIT SCREENING SCREENING MAMMOGRAPHY BI 2-VIEW BREAST INC Jonathan Davis MD [address] [place] [address] [facility] [address] [place] [address] Referral ID Status Reason Start Date Expiration Date Visits Requested Visits Authorized [id number] Pending Review Auto-Generat ed Referral 05/26/2022 06/25/2023 1 1 [facility] for visit Narrative* Diagnostic Procedure Only (Routine) - Closed Specialty Diagnoses / Procedures Referred By Savita t Referred To Contact [facility] Diagnoses Encounter for screening mammogram for breast cancer Procedures SARABJIT SCREENING SCREENING MAMMOGRAPHY BI 2-VIEW BREAST INC Jonathan Davis MD [address] [place] [address] [facility] [address] [place] [address] Referral ID Status Reason Start Date Expiration Date V isits Requested Visits Authorized [id number] Closed Auto-Generate d Referral 05/26/2022 06/25/2023 1 1 [facility] Advance Directives No Advanced Directives Records FoundDocuments on File Type Date Recorded 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 Advance Directive(s) Summary Purpose Family History No Family History Records FoundNo Family History Records Found Reason for Referral Specialty Diagnoses / Procedures Referred By Savita griffin Referred To Contact Orthopedics Diagnoses Low back pain, unspecified back pain laterality, unspecified chronicity, unspecified whether sciatica present Procedures CONSULT TO ORTHOPAEDICS Jonathan Aviles MD [address] [place] [address] Referral ID Status Reason Start Date Expiration Date Visits Requested Visits Authorized [id number] Ref Not Required PCP Requested Referral 05/23/2023 05/22/2024 1 1 Additional Source Comments Care Team (unrecognized sect ion and content) Lidding Machine Operator Relationship Specialty Start Date End Date Jonathan Aviles MD [address] [place], [place] [id number] PCP - General Family Medicine 05/26/21 Lidding Machine Operator Relationship Specialty Start Date End Date Jonathan Aviles MD [address] [facility], [place] [id number] PCP - General Family Medicine 05/26/21 Lidding Machine Operator Relationship Specialty Start Date End Date Jonathan Aviles MD [address] [facility], [place] [id number] PCP - General Family Medicine 05/26/21 Lidding Machine Operator Relationship Specialty Start Date End Date Jonathan Aviles MD [address] [place] [address] PCP - General Family Medicine 05/26/21 Lidding Machine Operator Relationship Specialty Start Date End Date Jonathan Aviles MD [address] [place], [place] [address] PCP - General Family Medicine 05/26/21 Lidding Machine Operator Relationship Specialty Start Date End Date Jonathan Aviles MD [address] [facility], [place] [address] PCP - General Family Medicine 05/26/21 Source Comments (unrecognize d section and content) In the event this informatio n is protected by the Federal Confidentiality of Alcohol and Drug Abuse Patient Records regulations: The Federal rules restrict any use of the information to criminally investigate or prosecute any alcohol or drug abuse patient.[facility] the event this information is protected by the Federal Confidentiality of Alcohol and Drug Abuse Patient Records regulations: The Federal rules restrict any use of the information to criminally investigate or prosecute any alcohol or drug abuse patient.[facility] the event this information is protected by the Federal Confidentiality of Alcohol and Drug Abuse Patient Records regulations: The Federal rules restrict any use of the information to criminally investigate or prosecute any alcohol or drug abuse patient.[facility] [facility] the event this information is protected by the Federal Confidentiality of Alcohol and Drug Abuse Patient Records regulations: The Federal rules restrict any use of the information to criminally investigate or prosecute any alcohol or drug abuse patient.[facility] the event this information is protected by the Federal Confidentiality of Alcohol and Drug Abuse Patient Records regulations: The Federal rules restrict any use of the information to criminally investigate or prosecute any alcohol or drug abuse patient.[facility] the event this information is protected by the Federal Confidentiality of Alcohol and Drug Abuse Patient Records regulations: The Federal rules restrict any use of the information to criminally investigate or prosecute any alcohol or drug abuse patient.[facility] the event this information is protected by the Federal Confidentiality of Alcohol and Drug Abuse Patient Records regulations: The Federal rules restrict any use of the information to criminally investigate or prosecute any alcohol or drug abuse patient.[facility] Reason for Visit (unrecogniz ed section and content) Reason Comments Sinus Problem INFORMATION SOURCE (unrecogn ized section and content) DATE CREATED AUTHOR AUTHOR'S ORGANIZ ATION 07/16/2023 [facility] FOR RECORDS PERTAINING TO PATIENTS WHO [...] BE BASED ON THE PRIMARY CLINICAL RECORDS. [facility] provides no warranty or guarantee of the accuracy or completeness of information in this document.
--- NOTE | 2023-09-14 22:05 | HP.PCM_ITS ---
[facility] - General General Date of Service: 09/01/23 Chief Complaint: kidney stones [facility] Narrative CHEVY PATRICK, is a 63 F who presents for cystoscopy with removal of left ureteral stent along with right renal extracorporeal shockwave lithotripsy. She has had a preoperative urine culture and informed consent has been obtained. PFSH Medical History Arthritis Back pain Easy bruising Heartburn History of pain when walking History of renal disease Kidney stones Leg cramps Marijuana use Post-menopausal Restless legs Smoker Home Medications cephalexin 250 mg capsule 250 mg PO QHS 06/28/23 [History Last Taken Unknown] sulfamethoxazole 800 mg-trimethoprim 160 mg tablet 1 tab PO BID 3 days #6 TABLETS 09/01/23 [Rx Last Taken Unknown] Allergy/AdvReac Type Severity Reaction Status Date / Time No Known Allergies Allergy Verified 09/01/23 13:09 Surgical History History of cholecystectomy History of extraction of renal calculus History of oral surgery Hx of cystoscopy Social History Smoking Status: Current every day smoker tobacco type: cigarettes alcohol intake: never ROS Constitutional Constitutional: Denies body ache(s), chills or fever(s) Eyes Eyes: Reports systems reviewed and no addt'l complaints, except as documented ENT HEENT: Reports systems reviewed and no addt'l complaints, except as documented Cardiovascular Cardiovascular: Denies chest pain, dizziness, dyspnea or irregular heart rhythm Respiratory/Chest Respiratory/Chest: Denies chest congestion, cough or dyspnea Gastrointestinal Gastrointestinal: Reports constipation; Denies abdominal pain, nausea or vomiting Genitourinary Genitourinary: Reports hematuria and urinary urgency; Denies burning urination or difficulty urinating Musculoskeletal Musculoskeletal: Reports systems reviewed and no addt'l complaints, except as documented Integumentary Integumentary: Reports systems reviewed and no addt'l complaints, except as documented Neurologic Neurologic: Reports systems reviewed and no addt'l complaints, except as documented Psychiatric Psychiatric: Reports systems reviewed and no addt'l complaints, except as documented Endocrine Endocrinology: Reports systems reviewed and no addt'l complaints, except as documented Hematologic/Lymphatic Hematologic/Lymphatic: Reports systems reviewed and no addt'l complaints, except as documented Allergic/Immunologic Allergic/Immunologic: Reports systems reviewed and no addt'l complaints, except as documented Physical Exam Const alert, oriented x3 and no apparent distress HEENT normocephalic, head/scalp atraumatic, hearing grossly normal bilaterally, external nose normal and moist oral mucous membranes Eyes General Eye: normal appearance of both eyes Neck supple General: normal visual inspection and trachea midline Lymph Lymphatic: no lymphedema noted Chest inspection of chest normal Resp normal respiratory effort, normal air movement, no retractions and no use of accessory muscles Effort and Inspection: able to speak in complete sentences Cardio regular rate and regular rhythm GI soft to palpation, non-tender and non-distended no CVA tenderness Back/Spine no CVA tenderness Extremity normal to inspection Skin no rashes or lesions noted, no wounds, skin turgor normal, no jaundice, no petechiae and no mottling Neuro oriented x3, CN's II-XII intact bilaterally and moves all extremities Psych mental status grossly normal, thought process normal and cooperative Results Imaging Radiology Impression KUB X-Ray 09/14/23 09:08 IMPRESSION: Non-obstructive bowel gas pattern. Electronically Signed: Oma Zhu MD at 20:09 EST , Assessment & Plan Assessment/Plan (1) Kidney stones: PLAN: Plan cystoscopy with removal of left ureteral stent, right renal extracorporeal shockwave lithotripsy
== END | disposition home or self-care (01) ==
PROVIDERS: PCP Family Medicine; Referring Provider Urology; Visit Provider Urology
DX: N20.0 Calculus of kidney (principal)
CPT/HCPCS: 74018

== ENCOUNTER → 2023-12-09 | Outpatient (CLI) | payer MEDICARE, SELFPAY | END | disposition home or self-care (01) | LOC: LABSPEC 12:35 | PROVIDERS: PCP Family Medicine; Referring Provider Physician Assistant; Visit Provider Physician Assistant | DX: J06.9 Acute upper respiratory infection, unspecified (principal) | CPT/HCPCS: 87631 ==

== ENCOUNTER → 2024-04-09 | Outpatient (CLI) | payer MEDICARE, SELFPAY ==
[2024-04-09 17:54] LABS: Mucous, Urine 0 SEEN /hpf (<or=2+); Red Blood Cells-Urine 0 SEEN /hpf (0-5); Squamous Epithelial Cells - UA 0 SEEN /hpf (5-10)
[2024-04-09 18:45] LABS: Color, Urine Yellow (Yellow); Glucose, Dipstick Normal (Normal); Ketone-Dipstick Negative (Negative); Leukocyte Esterase-Dipstick 500 /ul (Negative); Nitrite-Dipstick Positive (Negative); Occult Blood-Urine 150 /ul (Negative); Protein-Dipstick 100 mg/dl (Negative); Specific Gravity, Urine 1.025 (1.002-1.030); Urine Bilirubin Dipstick Negative (Negative); Urine Clarity Cloudy (Clear); Urine Urobilinogen Normal (Normal)
[2024-04-09 19:12] LABS: Bacteria 2+ /hpf (None Seen); Calcium Oxalate Crystals Ur 2+ /hpf (<or=2+); White Blood Cells >100 SEEN /hpf (0-5)
== END | disposition home or self-care (01) ==
PROVIDERS: PCP Family Medicine; Referring Provider Physician Assistant; Visit Provider Physician Assistant
DX: R30.0 Dysuria (principal)
CPT/HCPCS: 81001; 87086; 87088; 87186

== ENCOUNTER → 2024-10-30 | Outpatient (CLI) | payer MEDICARE, SELFPAY ==
--- NOTE | 2024-10-30 14:23 | RAD_ITS ---
PROCEDURE: ABDOMEN SINGLE VIEW 10/30/2024 REASON FOR EXAM: KUB- KIDNEY STONES TECHNIQUE: Single view abdomen. COMPARISON: None. FINDINGS: Moderate amount of fecal residue in the large bowels. Moderate gaseous distention of the stomach. Metallic clips are noted in the right upper quadrant, possibly prior cholecystectomy. Left renal nonobstructing stone measuring 4 mm is suspected in the upper pole. Mild diffuse spondylosis. Unremarkable low lumbar fusion metallic hardware. Normal visualized lung bases. There is an unremarkable bowel gas pattern. There is no demonstrated free abdominal air. Normal visualized liver. Normal visualized spleen. The soft tissue structures of the pelvis are unremarkable. Moderate diffuse spondylosis. Unremarkable low lumbar fusion metallic hardware. RAD/Abdomen Single View IMPRESSION: Suspected left nephrolithiasis. Significantly limited evaluation secondary to moderate amount of fecal residue in the large bowels and moderate gaseous distention of the stomach. Reading [facility]
== END | disposition home or self-care (01) ==
LOC: MTRAD 14:22
PROVIDERS: PCP Family Medicine; Referring Provider Urology; Visit Provider Urology
DX: N20.0 Calculus of kidney (principal)
CPT/HCPCS: 74018